=== PATIENT | female | born 1965 | race Caucasian/White ===

== ENCOUNTER 2018-04-30 14:18 | Inpatient (IN) | payer BC, MEDICARE ==
[2018-04-30] MEDS ORDERED: SODIUM CHLORIDE 0.9% 1,000 ML IV STA (14:40)
[2018-04-30] MEDS ORDERED: SODIUM CHLORIDE 0.9% 500 ML 500 ML IV STA (14:40)
[2018-04-30] MEDS ORDERED: FAMOTIDINE 20 MG/2 ML VIAL IV STA (15:06)
[2018-04-30] MEDS ORDERED: ONDANSETRON 4 MG/2 ML VIAL IVP STA ×2 (15:06→17:18)
[2018-04-30 15:38] LABS: Basophils % (A) 0 %; Eosinophils # (A) 0.2 k/uL (0-0.7); Eosinophils % (A) 1 %; HCT 43.2 % (34.0-46.0); HGB 13.9 gm/dL (11.4-16.0); Lymphocytes % (A) 13 %; MCH 29.5 pg (25.0-35.0); MCHC 32.1 g/dL (31.0-37.0); MCV 91.8 fL (80.0-100.0); Mean Platelet Volume 6.8; Monocytes # (A) 0.9 k/uL (0-1.0); Monocytes % (A) 6 %; Neutrophils # (A) 11.8 k/uL (1.3-7.7); Neutrophils % (A) 78 %; Platelet Count 372 k/uL (150-450); RBC 4.71 m/uL (3.80-5.40); RDW 12.3 % (11.5-15.5); WBC 15.2 k/uL (3.8-10.6)
[2018-04-30 15:40] LABS: Amorphous Sediment,Urine Rare /hpf; Appearance,Urine Cloudy (Clear); Bacteria,Urine Occasional /hpf; Bilirubin,Urine Negative (Negative); Blood,Urine Small (Negative); Color,Urine Yellow; Glucose,Urine (UA) Negative (Negative); Ketones,Urine 2+ (Negative); Leukocyte Esterase,Urine Moderate (Negative); Mucus,Urine Moderate /hpf; Nitrite,Urine Negative (Negative); Protein,Urine Trace (Negative); RBC,Urine 3 /hpf (0-5); Specific Gravity,Urine 1.014 (1.001-1.035); Squamous Epithelial Cell,Urine 20 /hpf (0-4); Urobilinogen,Urine <2.0 mg/dL (<2.0); WBC,Urine 3 /hpf (0-5)
[2018-04-30 15:42] LABS: ALT 104 U/L (9-52); AST 41 U/L (14-36); Albumin 3.8 g/dL (3.5-5.0); Alkaline Phosphatase 174 U/L (38-126); Amylase <30 U/L (30-110); Anion Gap 12 mmol/L; Blood Urea Nitrogen 13 mg/dL (7-17); Calcium 9.4 mg/dL (8.4-10.2); Carbon Dioxide 23 mmol/L (22-30); Chloride 105 mmol/L (98-107); Glucose 96 mg/dL (74-99); Lipase 90 U/L (23-300); Potassium 3.4 mmol/L (3.5-5.1); Sodium 140 mmol/L (137-145); Total Bilirubin 0.5 mg/dL (0.2-1.3)
--- NOTE | 2018-04-30 15:51 | ED ---
Nausea/Vomiting/Diarrhea HPI - General Chief complaint: Nausea/Vomiting/Diarrhea Stated complaint: NVD,head pressure Time Seen by Provider: 04/30/18 14:40 Source: patient, RN notes reviewed Mode of arrival: wheelchair Limitations: no limitations - History of Present Illness Initial comments: 52-year-old female presents emergency Department with multiple complaints. Patient states that approximately 10 days ago she started with generalized not feeling well, swollen glands in her neck region. She states she woke up with her face appearing purplish, facial flushing sensation. Patient states she saw her PCP who felt that this may be something viral. Symptoms seemed to worsen in which she notified PCP and told her she most likely is influenza and she does need to write it out. She's had increasing nausea and vomiting at the beginning which vomiting has resolved though she is still very nauseous. She's had diarrhea daily which is loose and watery. No traveling no sick contacts with some her symptoms. Denies any seafood intake. Patient states that she's had no melena she is a. Patient states that she just feels uncomfortable pressure or neck region and she recently developed a sore throat. Patient also complains of lower abdominal and upper abdominal pain. Denies any chest pain. - Related Data Home Medications Medication Instructions Recorded Confirmed Albuterol Sulfate [Proair Hfa] 2 puff INHALATION DAILY PRN 04/30/18 04/30/18 Atenolol [Tenormin] 50 mg PO DAILY 04/30/18 04/30/18 Butalb/APAP/Caff 50-325-40Mg 1 tab PO DAILY PRN 04/30/18 04/30/18 [Fioricet 50-325-40] Calcium Carbonate [Tums] 500 mg PO DIRECTED PRN 04/30/18 04/30/18 Furosemide [Lasix] 20 mg PO DAILY 04/30/18 04/30/18 Gabapentin 600 mg PO TID 04/30/18 04/30/18 HYDROcodone/APAP 10-325MG [[place] 1 tab PO HS 04/30/18 04/30/18 10-325] HYDROcodone/APAP 7.5-325MG [[place] 1 tab PO TID 04/30/18 04/30/18 7.5-325] Nortriptyline [Pamelor] 50 mg PO HS 04/30/18 04/30/18 Omeprazole [PriLOSEC] 10 mg PO BID 04/30/18 04/30/18 Potassium Chloride ER [K-Dur 20] 20 meq PO BID 04/30/18 04/30/18 Topiramate [Topamax] 100 mg PO DAILY 04/30/18 04/30/18 tiZANidine [Zanaflex] 4 mg PO TID 04/30/18 04/30/18 Allergies Allergy/AdvReac Type Severity Reaction Status Date / Time No Known Allergies Allergy Verified 04/30/18 16:39 Review of Systems ROS Statement: Those systems with pertinent positive or pertinent negative responses have been documented in the HPI. ROS Other: All systems not noted in ROS Statement are negative. Past Medical History Past Medical History: Asthma, GERD/Reflux, Hypertension Additional Past Medical History / Comment(s): WATER RETENTION, MIGRAINES History of Any Multi-Drug Resistant Organisms: None Reported Past Surgical History: Back Surgery, Hysterectomy Past Psychological History: No Psychological Hx Reported Smoking Status: Never smoker Past Alcohol Use History: None Reported Past Drug Use History: None Reported General Exam Limitations: no limitations General appearance: alert, in no apparent distress Head exam: Present: atraumatic, normocephalic, normal inspection Eye exam: Present: normal appearance, PERRL, EOMI. Absent: scleral icterus, conjunctival injection, periorbital swelling ENT exam: Present: normal exam, normal oropharynx, mucous membranes moist, TM's normal bilaterally Neck exam: Present: normal inspection, full ROM. Absent: tenderness, meningismus, lymphadenopathy Respiratory exam: Present: normal lung sounds bilaterally. Absent: respiratory distress, wheezes, rales, rhonchi, stridor Cardiovascular Exam: Present: regular rate, normal rhythm, normal heart sounds. Absent: systolic murmur, diastolic murmur, rubs, gallop, clicks GI/Abdominal exam: Present: soft, tenderness (Moderate upper and lower), normal bowel sounds. Absent: distended, guarding, rebound, rigid Back exam: Absent: CVA tenderness (R), CVA tenderness (L) Neurological exam: Present: alert, oriented X3, CN II-XII intact Skin exam: Present: warm, dry, intact, normal color. Absent: rash Course Vital Signs 03/22/19 03/22/19 03/22/19 14:30 16:25 17:18 Temperature 98.1 F 98.1 F Pulse Rate 74 67 76 Respiratory 16 19 15 Rate Blood Pressure 117/75 107/65 113/69 O2 Sat by Pulse 97 97 97 Oximetry Medical Decision Making - Medical Decision Making 52-year-old female presented emergency from for ongoing nausea vomiting diarrhea. Patient's found to be dehydrated, mild transaminitis. Ultrasound shows evidence of stone but no evidence of infection. Patient has persistent nausea emergency department. Patient will be admitted for IV hydration, surgery evaluation. - Lab Data Result diagrams: 04/30/18 15:12 04/30/18 15:12 Lab Results 04/30/18 04/30/18 04/30/18 Range/Units 15:12 15:12 15:12 WBC 15.2 H (3.8-10.6) k/uL RBC 4.71 (3.80-5.40) m/uL Hgb 13.9 (11.4-16.0) gm/dL Hct 43.2 (34.0-46.0) % MCV 91.8 (80.0-100.0) fL MCH 29.5 (25.0-35.0) pg MCHC 32.1 (31.0-37.0) g/dL RDW 12.3 (11.5-15.5) % Plt Count 372 (150-450) k/uL Neutrophils % 78 % Lymphocytes % 13 % Monocytes % 6 % Eosinophils % 1 % Basophils % 0 % Neutrophils # 11.8 H (1.3-7.7) k/uL Lymphocytes # 2.0 (1.0-4.8) k/uL Monocytes # 0.9 (0-1.0) k/uL Eosinophils # 0.2 (0-0.7) k/uL Basophils # 0.0 (0-0.2) k/uL Sodium 140 (137-145) mmol/L Potassium 3.4 L (3.5-5.1) mmol/L Chloride 105 (98-107) mmol/L Carbon Dioxide 23 (22-30) mmol/L Anion Gap 12 mmol/L BUN 13 (7-17) mg/dL Creatinine 0.78 (0.52-1.04) mg/dL Est GFR (CKD-EPI)AfAm >90 (>60 ml/min/1.73 sqM) Est GFR (CKD-EPI)NonAf 88 (>60 ml/min/1.73 sqM) Glucose 96 (74-99) mg/dL Calcium 9.4 (8.4-10.2) mg/dL Magnesium 2.0 (1.6-2.3) mg/dL Total Bilirubin 0.5 (0.2-1.3) mg/dL AST 41 H (14-36) U/L ALT 104 H (9-52) U/L Alkaline Phosphatase 174 H (38-126) U/L Troponin I (0.000-0.034) ng/mL Total Protein 7.0 (6.3-8.2) g/dL Albumin 3.8 (3.5-5.0) g/dL Amylase <30 L (30-110) U/L Lipase 90 (23-300) U/L Urine Color Yellow Urine Appearance Cloudy H (Clear) Urine pH 6.0 (5.0-8.0) Ur Specific [place] 1.014 (1.001-1.035) Urine Protein Trace H (Negative) Urine Glucose (UA) Negative (Negative) Urine Ketones 2+ H (Negative) Urine Blood Small H (Negative) Urine Nitrite Negative (Negative) Urine Bilirubin Negative (Negative) Urine Urobilinogen <2.0 (<2.0) mg/dL Ur Leukocyte Esterase Moderate H (Negative) Urine RBC 3 (0-5) /hpf Urine WBC 3 (0-5) /hpf Ur Squamous Epith Cells 20 H (0-4) /hpf Amorphous Sediment Rare H (None) /hpf Urine Bacteria Occasional H (None) /hpf Urine Mucus Moderate H (None) /hpf Hepatitis A IgM Ab Heterophile Antibody (Negative) 04/30/18 04/30/18 04/30/18 Range/Units 15:12 15:12 16:09 WBC (3.8-10.6) k/uL RBC (3.80-5.40) m/uL Hgb (11.4-16.0) gm/dL Hct (34.0-46.0) % MCV (80.0-100.0) fL MCH (25.0-35.0) pg MCHC (31.0-37.0) g/dL RDW (11.5-15.5) % Plt Count (150-450) k/uL Neutrophils % % Lymphocytes % % Monocytes % % Eosinophils % % Basophils % % Neutrophils # (1.3-7.7) k/uL Lymphocytes # (1.0-4.8) k/uL Monocytes # (0-1.0) k/uL Eosinophils # (0-0.7) k/uL Basophils # (0-0.2) k/uL Sodium (137-145) mmol/L Potassium (3.5-5.1) mmol/L Chloride (98-107) mmol/L Carbon Dioxide (22-30) mmol/L Anion Gap mmol/L BUN (7-17) mg/dL Creatinine (0.52-1.04) mg/dL Est GFR (CKD-EPI)AfAm (>60 ml/min/1.73 sqM) Est GFR (CKD-EPI)NonAf (>60 ml/min/1.73 sqM) Glucose (74-99) mg/dL Calcium (8.4-10.2) mg/dL Magnesium (1.6-2.3) mg/dL Total Bilirubin (0.2-1.3) mg/dL AST (14-36) U/L ALT (9-52) U/L Alkaline Phosphatase (38-126) U/L Troponin I <0.012 (0.000-0.034) ng/mL Total Protein (6.3-8.2) g/dL Albumin (3.5-5.0) g/dL Amylase (30-110) U/L Lipase (23-300) U/L Urine Color Urine Appearance (Clear) Urine pH (5.0-8.0) Ur Specific [place] (1.001-1.035) Urine Protein (Negative) Urine Glucose (UA) (Negative) Urine Ketones (Negative) Urine Blood (Negative) Urine Nitrite (Negative) Urine Bilirubin (Negative) Urine Urobilinogen (<2.0) mg/dL Ur Leukocyte Esterase (Negative) Urine RBC (0-5) /hpf Urine WBC (0-5) /hpf Ur Squamous Epith Cells (0-4) /hpf Amorphous Sediment (None) /hpf Urine Bacteria (None) /hpf Urine Mucus (None) /hpf Hepatitis A IgM Ab NEGATIVE Heterophile Antibody Negative (Negative) - EKG Data EKG Comments: EKG performed at 15:21 normal sinus rhythm with rate of 70 ID 1:30 QRS 100 QT/QTC 398/429 Disposition Clinical Impression: Dehydration, Diarrhea, Transaminitis, Cholelithiasis, Intractable nausea and vomiting Disposition: ADMITTED IP TO THIS HOSP Condition: Fair Referrals: Bennie Bennett MD [Primary Care Provider] - 1-2 days
--- NOTE | 2018-04-30 16:01 | US ---
EXAMINATION TYPE: US abdomen limited DATE OF EXAM: 04/30/2018 COMPARISON: NONE CLINICAL HISTORY: Pain. No surgeries, NPO EXAM MEASUREMENTS: Liver Length: 16.2 cm Gallbladder Wall: 0.2 cm CBD: 0.4 cm CHD: 0.3 cm Right Kidney: 10.8 x 5.3 x 4.7 cm Pancreas: Appears echogenic in appearance. Tail obscured by overlying bowel gas Liver: wnl Gallbladder: Multiple mobile echogenic foci seen with shadow, largest - 1.9 cm Evidence for sonographic Cuevas's sign: neg CBD: wnl CHD: wnl Right Kidney: wnl IMPRESSION: 1. Multiple gallstones without wall thickening or pericholecystic fluid.
[2018-04-30] MEDS ORDERED: diphenhydrAMINE 50 MG/ML 1 ML VIAL IVP STA (16:06)
[2018-04-30] MEDS ORDERED: METOCLOPRAMIDE 5 MG/ML 2 ML VIAL IVP STA (16:06)
[2018-04-30 17:17] LABS: Hepatitis A AB IgM Index 0.06; Hepatitis A Antibody IgM NEGATIVE
[2018-04-30] MEDS ORDERED: ONDANSETRON 4 MG/2 ML VIAL IVP PRN (18:04)
[2018-04-30] MEDS: SODIUM CHLORIDE 0.9% 1,000 ML IV SCH (18:48)
[2018-04-30 19:39] LABS: INR 0.9 (<1.2); Prothrombin Time 9.9 sec (9.0-12.0)
--- NOTE | 2018-04-30 20:10 | P.HPIM ---
History of Present Illness H&P Date: 04/30/18 Chief Complaint: Abdominal pain nausea vomiting and diarrhea The patient is a 52-year-old female with a past medical history of essential hypertension, migraine headaches, chronic pain from previous, neck surgeries including cervical laminectomy and fusion and lumbar discectomy and laminectomy who presents to the ER via private vehicle with chief complaint of abdominal pain. The patient reports a history of 10 days of mid epigastric to left upper quadrant abdominal pain moderate to severe described as crampy with radiation into her back at times, she reports associated nausea and vomiting during this time along with profound watery diarrhea and subjective fevers and chills and night sweats, she denies any bright red blood per rectum or dark melanotic stools. She reports a history of receiving antibiotics with Augmentin for a total of 2-3 courses previously to treat presumed sinusitis. The patient does report a history of recurrent left cervical lymphadenopathy The patient denies any chest pain, she denies shortness of breath, she denies lower extr emity swelling. In the ER the patient had a comprehensive workup abnormal labs included a white count of 15.2,serum potassium level of 3.4, AST ALT at 41/104 respectively, lipase was 90. Her right upper quadrant ultrasound was consistent with multiple gallstones without thickening or pericholecystic fluid. EKG showed normal sinus rhythm Review of Systems Pertinent positives per HPI all other review of systems otherwise negative Past Medical History Past Medical History: Asthma, GERD/Reflux, Hypertension Additional Past Medical History / Comment(s): WATER RETENTION, MIGRAINES History of Any Multi-Drug Resistant Organisms: None Reported Past Surgical History: Back Surgery, Hysterectomy Past Psychological History: No Psychological Hx Reported Smoking Status: Never smoker Past Alcohol Use History: None Reported Past Drug Use History: None Reported - Past Family History Mother Family Medical History: Congestive Heart Failure (CHF), Diabetes Mellitus, Hypertension Additional Family Medical History / Comment(s): pulmonary hypertension, needed oxygen Father Family Medical History: Congestive Heart Failure (CHF), COPD, Diabetes Mellitus, Hypertension Additional Family Medical History / Comment(s): obsese, edema, Medications and Allergies Home Medications Medication Instructions Recorded Confirmed Type Albuterol Sulfate [Proair Hfa] 2 puff INHALATION DAILY PRN 04/30/18 04/30/18 History Atenolol [Tenormin] 50 mg PO DAILY 04/30/18 04/30/18 History Butalb/APAP/Caff 50-325-40Mg 1 tab PO DAILY PRN 04/30/18 04/30/18 History [Fioricet 50-325-40] Calcium Carbonate [Tums] 500 mg PO DIRECTED PRN 04/30/18 04/30/18 History Furosemide [Lasix] 20 mg PO DAILY 04/30/18 04/30/18 History Gabapentin 600 mg PO TID 04/30/18 04/30/18 History HYDROcodone/APAP 10-325MG [[place] 1 tab PO HS 04/30/18 04/30/18 History 10-325] HYDROcodone/APAP 7.5-325MG [[place] 1 tab PO TID 04/30/18 04/30/18 History 7.5-325] Nortriptyline [Pamelor] 50 mg PO HS 04/30/18 04/30/18 History Omeprazole [PriLOSEC] 10 mg PO BID 04/30/18 04/30/18 History Potassium Chloride ER [K-Dur 20] 20 meq PO BID 04/30/18 04/30/18 History Topiramate [Topamax] 100 mg PO DAILY 04/30/18 04/30/18 History tiZANidine [Zanaflex] 4 mg PO TID 04/30/18 04/30/18 History Allergies Allergy/AdvReac Type Severity Reaction Status Date / Time No Known Allergies Allergy Verified 04/30/18 16:39 Physical Exam Vitals: Vital Signs Temp Pulse Resp BP Pulse Ox 04/30/18 18:58 99.1 F 79 15 117/71 95 04/30/18 17:18 76 15 113/69 97 04/30/18 16:25 98.1 F 67 19 107/65 97 04/30/18 14:30 98.1 F 74 16 117/75 97 Intake and Output 04/30/18 04/30/18 04/30/18 06:59 14:59 22:59 Other: Weight 88.451 kg Constitutional: No acute distress, conversant, pleasant Eyes: Anicteric sclerae, moist conjunctiva, no lid-lag, PERRLA ENMT: NC/AT,Oropharynx clear, no erythema, exudates Neck:Supple, FROM, no masses, or JVD, No carotid bruits; No thyromegaly Lungs: Clear to auscultation, Clear to percussion, Normal respiratory effort, no accessory muscle use Cardiovascular: Heart regular in rate and rhythm, No murmurs, gallops, or rubs no peripheral edema Abdominal: Soft tender to palpation in the left upper quadrant with positive McMurphy sign, non distended, no guarding, no rebound or rigidity, hypoactive bowel sounds No hepatomegaly, No splenomegaly, No palpable mass No abdominal wall hernia noted Skin: Normal temperature, tone, texture, turgor, No induration No subcutaneous nodules, No rash, lesions, No ulcers Extremities:No digital cyanosis No clubbing, Pedal pulses intact and symmetrical Radial pulses intact and symmetrical Normal gait and station, No calf tenderness Psychiatric: Alert and oriented to person, place and time, Appropriate affect Intact judgement Neuro: Muscles Strength 5/5 in all 4 extremities, Sensation to light touch grossly present throughout, Cranial nerves II-XII grossly intact. No focal sensory deficits Results CBC & Chem 7: 04/30/18 15:12 04/30/18 15:12 Labs: Abnormal Lab Results - Last 24 Hours (Table) 04/30/18 04/30/18 04/30/18 Range/Units 15:12 15:12 15:12 WBC 15.2 H (3.8-10.6) k/uL Neutrophils # 11.8 H (1.3-7.7) k/uL Potassium 3.4 L (3.5-5.1) mmol/L AST 41 H (14-36) U/L ALT 104 H (9-52) U/L Alkaline Phosphatase 174 H (38-126) U/L Amylase <30 L (30-110) U/L Urine Appearance Cloudy H (Clear) Urine Protein Trace H (Negative) Urine Ketones 2+ H (Negative) Urine Blood Small H (Negative) Ur Leukocyte Esterase Moderate H (Negative) Ur Squamous Epith Cells 20 H (0-4) /hpf Amorphous Sediment Rare H (None) /hpf Urine Bacteria Occasional H (None) /hpf Urine Mucus Moderate H (None) /hpf Assessment and Plan (1) Symptomatic cholelithiasis Current Visit: Yes Status: Acute Code(s): K80.20 - CALCULUS OF GALLBLADDER W/O CHOLECYSTITIS W/O OBSTRUCTION SNOMED Code(s): 442296496 (2) Abdominal pain Current Visit: Yes Status: Acute Code(s): R10.9 - UNSPECIFIED ABDOMINAL PAIN SNOMED Code(s): 92346676 (3) Diarrhea Current Visit: Yes Status: Acute Code(s): R19.7 - DIARRHEA, UNSPECIFIED SNOMED Code(s): 93365338 (4) Intractable nausea and vomiting Current Visit: Yes Status: Acute Code(s): R11.2 - NAUSEA WITH VOMITING, UNSPECIFIED SNOMED Code(s): 940616015 (5) Leukocytosis Current Visit: Yes Status: Acute Code(s): D72.829 - ELEVATED WHITE BLOOD CELL COUNT, UNSPECIFIED SNOMED Code(s): 228496045 (6) Transaminitis Current Visit: Yes Status: Acute Code(s): R74.0 - NONSPEC ELEV OF LEVELS OF TRANSAMNS & LACTIC ACID DEHYDRGNSE SNOMED Code(s): 279568435 Plan: The patient is placed in observation anticipate a less than 2 midnight stay with symptomatic cholelithiasis after presenting with abdominal pain and intractable nausea vomiting and diarrhea with a white count of 15.2. We'll plan to treat the patient supportively with IV antiemetics and morphine, will plan to obtain a CT abdomen and pelvis, consult general surgery Dr. carver to evaluate for lap terrie. We'll obtain C. diff stool studies and started on empiric IV antibiotics with Flagyl and Zosyn. We'll obtain blood cultures. Place patient on DVT) GI prophylaxis with heparin and Protonix respectively. Continue to follow her clinical course CODE STATUS full code Discussed plan of care with : Patient and her Anticipated discharge : 1-2 days
[2018-04-30 21:00] VITALS: BMI 33.5
[2018-04-30] MEDS ORDERED: PANTOPRAZOLE 40 MG TABLET PO SCH (21:00)
[2018-04-30] MEDS: NORTRIPTYLINE 25 MG CAP PO SCH (21:02)
[2018-04-30] MEDS: POTASSIUM CHLORIDE ER 20 MEQ TAB.ER PO SCH (21:07)
[2018-04-30] MEDS: GABAPENTIN 300 MG CAP PO SCH (21:07)
[2018-04-30] MEDS: HYDROcodone/APAP 7.5-325MG 1 EACH TAB PO SCH (21:07)
[2018-04-30] MEDS: metroNIDAZOLE-NS PMX 500 MG in SALINE 1 100ML.BAG IVPB SCH (21:47)
[2018-04-30] MEDS: tiZANidine 4 MG TAB PO SCH (21:53)
--- NOTE | 2018-04-30 22:13 | CT ---
EXAMINATION TYPE: CT abdomen pelvis wo con DATE OF EXAM: 04/30/2018 COMPARISON: None HISTORY: abdominal pain, nausea, vomiting CT DLP: 561.2 mGycm Automated exposure control for dose reduction was used. TECHNIQUE: Helical acquisition of images was performed from the lung bases through the pelvis. FINDINGS: Within the limits of noncontrast CT the following observations are made: LUNG BASES: No significant abnormality is appreciated. LIVER/GB: No definite acute findings, but cholelithiasis occupies most of the gallbladder. Gallbladde r is otherwise normal as is the biliary tree. PANCREAS: No significant abnormality is seen. SPLEEN: No significant abnormality is seen. ADRENALS: No significant abnormality is seen. KIDNEYS: No significant abnormality is seen. PERITONEAL CAVITY: There is a small volume of free fluid within the lower pelvis and cul-de-sac, like ly reactive etiology. There is no pneumoperitoneum. RETROPERITONEAL ADENOPATHY: None visualized REPRODUCTIVE ORGANS: No significant abnormality is seen URINARY BLADDER: No significant abnormality is seen. PELVIC ADENOPATHY: None visualized. The stomach and duodenum and small bowel are unremarkable. OSSEOUS STRUCTURES: No significant abnormality is seen. BOWEL: A striking finding on the CT is brush colitis. There is moderate marked circumferential mural t hickening of the colon throughout the ascending colon and also involving the transverse colon and jovany cending colon, with relative sparing of the rectosigmoid there is no associated pneumatosis or pneumo peritoneum. Supporting mesocolon shows [id number] edematous reticulation diffusely throughout i ts ascending and transverse and descending components. IMPRESSION: MODERATE-SEVERE PANCOLITIS CONSISTENT WITH INFLAMMATORY/INFECTIOUS ETIOLOGY; CONSIDER PSEUDOMEMBRANOU S COLITIS.
[2018-04-30] MEDS ORDERED: LEVOFLOXACIN 750MG-D5W PMX 750 MG in DEXTROSE/WATER 1 150ML.BAG IVPB SCH (23:00)
[2018-05-01] MEDS: PIPERACILLIN-TAZOBACTAM 3.375 GM in SODIUM CHLORIDE 0.9% 100 ML IVPB SCH ×3 (02:43→21:19)
[2018-05-01] MEDS: SODIUM CHLORIDE 0.9% 1,000 ML IV SCH ×2 (05:37→13:47)
[2018-05-01] MEDS: metroNIDAZOLE-NS PMX 500 MG in SALINE 1 100ML.BAG IVPB SCH ×3 (07:01→21:52)
[2018-05-01 07:47] LABS: Basophils % (A) 0 %; Eosinophils # (A) 0.2 k/uL (0-0.7); Eosinophils % (A) 2 %; HCT 42.1 % (34.0-46.0); HGB 13.4 gm/dL (11.4-16.0); Lymphocytes # (A) 1.7 k/uL (1.0-4.8); Lymphocytes % (A) 16 %; MCH 29.3 pg (25.0-35.0); MCHC 31.8 g/dL (31.0-37.0); MCV 92.1 fL (80.0-100.0); Mean Platelet Volume 6.9; Monocytes # (A) 0.6 k/uL (0-1.0); Monocytes % (A) 5 %; Neutrophils # (A) 7.8 k/uL (1.3-7.7); Neutrophils % (A) 75 %; Platelet Count 366 k/uL (150-450); RBC 4.58 m/uL (3.80-5.40); RDW 12.1 % (11.5-15.5); WBC 10.4 k/uL (3.8-10.6)
[2018-05-01 08:04] LABS: Anion Gap 10 mmol/L; Blood Urea Nitrogen 12 mg/dL (7-17); Calcium 8.8 mg/dL (8.4-10.2); Carbon Dioxide 23 mmol/L (22-30); Chloride 108 mmol/L (98-107); Glucose 84 mg/dL (74-99); Potassium 3.4 mmol/L (3.5-5.1); Sodium 141 mmol/L (137-145)
[2018-05-01] MEDS: HYDROcodone/APAP 7.5-325MG 1 EACH TAB PO SCH ×3 (08:10→21:49)
[2018-05-01] MEDS: POTASSIUM CHLORIDE ER 20 MEQ TAB.ER PO SCH ×2 (08:10→20:01)
[2018-05-01] MEDS: GABAPENTIN 300 MG CAP PO SCH ×3 (08:10→21:49)
[2018-05-01] MEDS: PANTOPRAZOLE 40 MG/10 ML VIAL IVP SCH (08:11)
[2018-05-01] MEDS: FUROSEMIDE 20 MG TAB PO SCH (08:11)
[2018-05-01] MEDS: TOPIRAMATE 100 MG TAB PO SCH (08:11)
[2018-05-01] MEDS: ATENOLOL 50 MG TAB PO SCH (08:11)
[2018-05-01] MEDS: tiZANidine 4 MG TAB PO SCH ×3 (08:12→21:50)
[2018-05-01] MEDS ORDERED: BUTALB/APAP/CAFF 50-325-40MG TAB PO PRN (08:29)
[2018-05-01] MEDS ORDERED: PANTOPRAZOLE 40 MG/10 ML VIAL IV SCH (09:00)
--- NOTE | 2018-05-01 15:22 | P.GSCN ---
History of Present Illness Consult date: 05/01/18 History of present illness: This is a very pleasant 52-year-old female who presented with a history of abdominal pain and multiple watery bowel movements 5-10 day. This is been going on for several days. She has been on antibiotics as an outpatient 3 courses of antibiotics secondary to a sinus infection. She denies any recent hospitalizations. She states that the pain was mostly in her right upper and left upper quadrants. She's never had anything like this before in the past. She does state that occasionally she gets some pain or nausea after eating in her right upper quadrant but this pain is a little different. She denies any fevers she has no other complaints at this time. Past Medical History Past Medical History: Asthma, GERD/Reflux, Hypertension Additional Past Medical History / Comment(s): WATER RETENTION, MIGRAINES History of Any Multi-Drug Resistant Organisms: None Reported Past Surgical History: Back Surgery, Hysterectomy Additional Past Surgical History / Comment(s): cervcial fusion C2-C7 darwin wrist, 3 back surgrey, CSF leak Past Anesthesia/Blood Transfusion Reactions: No Reported Reaction Past Psychological History: No Psychological Hx Reported Smoking Status: Never smoker Past Alcohol Use History: None Reported Past Drug Use History: None Reported - Past Family History Mother Family Medical History: Congestive Heart Failure (CHF), Diabetes Mellitus, Hypertension Additional Family Medical History / Comment(s): pulmonary hypertension, needed oxygen Father Family Medical History: Congestive Heart Failure (CHF), COPD, Diabetes Mellitus, Hypertension Additional Family Medical History / Comment(s): obsese, edema, Medications and Allergies Home Medications Medication Instructions Recorded Confirmed Type Albuterol Sulfate [Proair Hfa] 2 puff INHALATION DAILY PRN 04/30/18 04/30/18 History Atenolol [Tenormin] 50 mg PO DAILY 04/30/18 04/30/18 History Butalb/APAP/Caff 50-325-40Mg 1 tab PO DAILY PRN 04/30/18 04/30/18 History [Fioricet 50-325-40] Calcium Carbonate [Tums] 500 mg PO DIRECTED PRN 04/30/18 04/30/18 History Furosemide [Lasix] 20 mg PO DAILY 04/30/18 04/30/18 History Gabapentin 600 mg PO TID 04/30/18 04/30/18 History HYDROcodone/APAP 10-325MG [[place] 1 tab PO HS 04/30/18 04/30/18 History 10-325] HYDROcodone/APAP 7.5-325MG [[place] 1 tab PO TID 04/30/18 04/30/18 History 7.5-325] Nortriptyline [Pamelor] 50 mg PO HS 04/30/18 04/30/18 History Omeprazole [PriLOSEC] 10 mg PO BID 04/30/18 04/30/18 History Potassium Chloride ER [K-Dur 20] 20 meq PO BID 04/30/18 04/30/18 History Topiramate [Topamax] 100 mg PO DAILY 04/30/18 04/30/18 History tiZANidine [Zanaflex] 4 mg PO TID 04/30/18 04/30/18 History Allergies Allergy/AdvReac Type Severity Reaction Status Date / Time No Known Allergies Allergy Verified 04/30/18 16:39 Surgical - Exam Osteopathic Statement: *. No significant issues noted on an osteopathic structural exam other than those noted in the History and Physical/Consult. Vital Signs Temp Pulse Resp BP Pulse Ox 98.1 F 74 16 117/75 97 04/30/18 14:30 04/30/18 14:30 04/30/18 14:30 04/30/18 14:30 04/30/18 14:30 - General well developed, well nourished, no distress - Eyes PERRL - Neck trachea midline - Respiratory normal expansion, normal respiratory effort - Cardiovascular Rhythm: regular - Abdomen Mild tenderness to palpation left upper right upper quadrants no rebound rigidity or guarding Abdomen: soft - Neurologic normal coordination, normal sensation - Psychiatric oriented to time, oriented to person, oriented to place Results - Labs 05/01/18 07:20 05/01/18 07:20 Abnormal Lab Results - Last 24 Hours (Table) 04/30/18 04/30/18 04/30/18 Range/Units 15:12 15:12 15:12 WBC 15.2 H (3.8-10.6) k/uL Neutrophils # 11.8 H (1.3-7.7) k/uL Potassium 3.4 L (3.5-5.1) mmol/L Chloride (98-107) mmol/L AST 41 H (14-36) U/L ALT 104 H (9-52) U/L Alkaline Phosphatase 174 H (38-126) U/L Amylase <30 L (30-110) U/L Urine Appearance Cloudy H (Clear) Urine Protein Trace H (Negative) Urine Ketones 2+ H (Negative) Urine Blood Small H (Negative) Ur Leukocyte Esterase Moderate H (Negative) Ur Squamous Epith Cells 20 H (0-4) /hpf Amorphous Sediment Rare H (None) /hpf Urine Bacteria Occasional H (None) /hpf Urine Mucus Moderate H (None) /hpf Stool Lactoferrin (NEGATIVE) C. difficile (EIA) Intrp (Negative) 05/01/18 05/01/18 05/01/18 Range/Units 03:20 03:20 07:20 WBC (3.8-10.6) k/uL Neutrophils # 7.8 H (1.3-7.7) k/uL Potassium (3.5-5.1) mmol/L Chloride (98-107) mmol/L AST (14-36) U/L ALT (9-52) U/L Alkaline Phosphatase (38-126) U/L Amylase (30-110) U/L Urine Appearance (Clear) Urine Protein (Negative) Urine Ketones (Negative) Urine Blood (Negative) Ur Leukocyte Esterase (Negative) Ur Squamous Epith Cells (0-4) /hpf Amorphous Sediment (None) /hpf Urine Bacteria (None) /hpf Urine Mucus (None) /hpf Stool Lactoferrin POSITIVE H (NEGATIVE) C. difficile (EIA) Intrp Positive A (Negative) 05/01/18 Range/Units 07:20 WBC (3.8-10.6) k/uL Neutrophils # (1.3-7.7) k/uL Potassium 3.4 L (3.5-5.1) mmol/L Chloride 108 H (98-107) mmol/L AST (14-36) U/L ALT (9-52) U/L Alkaline Phosphatase (38-126) U/L Amylase (30-110) U/L Urine Appearance (Clear) Urine Protein (Negative) Urine Ketones (Negative) Urine Blood (Negative) Ur Leukocyte Esterase (Negative) Ur Squamous Epith Cells (0-4) /hpf Amorphous Sediment (None) /hpf Urine Bacteria (None) /hpf Urine Mucus (None) /hpf Stool Lactoferrin (NEGATIVE) C. difficile (EIA) Intrp (Negative) Microbiology - Last 24 Hours (Table) 05/01/18 03:20 Stool Culture - Preliminary Stool Diabetes panel 04/30/18 05/01/18 Range/Units 15:12 07:20 Sodium 140 141 (137-145) mmol/L Potassium 3.4 L 3.4 L (3.5-5.1) mmol/L Chloride 105 108 H (98-107) mmol/L Carbon Dioxide 23 23 (22-30) mmol/L BUN 13 12 (7-17) mg/dL Creatinine 0.78 0.66 (0.52-1.04) mg/dL Glucose 96 84 (74-99) mg/dL Calcium 9.4 8.8 (8.4-10.2) mg/dL AST 41 H (14-36) U/L ALT 104 H (9-52) U/L Alkaline Phosphatase 174 H (38-126) U/L Total Protein 7.0 (6.3-8.2) g/dL Albumin 3.8 (3.5-5.0) g/dL Calcium panel 04/30/18 05/01/18 Range/Units 15:12 07:20 Calcium 9.4 8.8 (8.4-10.2) mg/dL Albumin 3.8 (3.5-5.0) g/dL Pituitary panel 04/30/18 05/01/18 Range/Units 15:12 07:20 Sodium 140 141 (137-145) mmol/L Potassium 3.4 L 3.4 L (3.5-5.1) mmol/L Chloride 105 108 H (98-107) mmol/L Carbon Dioxide 23 23 (22-30) mmol/L BUN 13 12 (7-17) mg/dL Creatinine 0.78 0.66 (0.52-1.04) mg/dL Glucose 96 84 (74-99) mg/dL Calcium 9.4 8.8 (8.4-10.2) mg/dL Adrenal panel 04/30/18 05/01/18 Range/Units 15:12 07:20 Sodium 140 141 (137-145) mmol/L Potassium 3.4 L 3.4 L (3.5-5.1) mmol/L Chloride 105 108 H (98-107) mmol/L Carbon Dioxide 23 23 (22-30) mmol/L BUN 13 12 (7-17) mg/dL Creatinine 0.78 0.66 (0.52-1.04) mg/dL Glucose 96 84 (74-99) mg/dL Calcium 9.4 8.8 (8.4-10.2) mg/dL Total Bilirubin 0.5 (0.2-1.3) mg/dL AST 41 H (14-36) U/L ALT 104 H (9-52) U/L Alkaline Phosphatase 174 H (38-126) U/L Total Protein 7.0 (6.3-8.2) g/dL Albumin 3.8 (3.5-5.0) g/dL - Imaging CT scan - abdomen: report reviewed, image reviewed CT scan - pelvis: report reviewed, image reviewed Assessment and Plan Assessment: 1. C. diff colitis 2. Symptomatic cholelithiasis Plan: Patient does have C. diff colitis likely secondary to her outpatient antibiotics that she was on. I recommend continuing Flagyl for treatment of C. diff. Oral vancomycin could also be added. No plans for acute surgical intervention. I also discussed following up as an outpatient once his C. diff colitis is resolved for elective cholecystectomy secondary to symptomatic cholelithiasis patient stated she understood this and agreed
--- NOTE | 2018-05-01 16:09 | P.PN ---
Subjective Progress Note Date: 05/01/18 The patient was seen and examined at the bedside. She notes continued diarrhea with 3 episodes since midnight along with continued 4 out of 10 diffuse abdominal pain. She otherwise denied fever, chills, vomiting, chest pain, or shortness of breath. Objective - Vital Signs Vital signs: Vital Signs Temp 98.1 F 05/01/18 15:00 Pulse 70 05/01/18 15:00 Resp 16 05/01/18 15:00 BP 113/62 05/01/18 15:00 Pulse Ox 99 05/01/18 15:00 Intake & Output 04/30/18 05/01/18 05/01/18 18:59 06:59 18:59 Intake Total 2750 Balance 2750 Weight 88.451 kg Intake: Amount of Fluid Infused ( 1700 ml) Intake, IV Titration 1050 Amount Levofloxacin 750Mg-D5w 150 Pmx 750 mg In Dextrose/ Water 1 150ml.bag @ 100 mls/hr IVPB Q24H [facility] Rx#: [id number] Piperacillin-Tazobactam 3 100 .375 gm In Sodium Chloride 0.9% 100 ml @ 25 mls/hr IVPB Q8HR [facility] Rx# :[id number] Sodium Chloride 0.9% 1, 800 000 ml @ 100 mls/hr IV . Q10H [facility] Rx#:[id number] Other: # Voids 3 - Exam General: Non-toxic, in no acute distress, appears stated age, obese HEENT: NC/AT, anicteric sclerae, moist conjunctiva, no lid-lag, PERRLA Cardiovascular: S1/S2 wnl, no murmurs, rubs, or gallops Lungs: Clear to auscultation, normal respiratory effort, no accessory muscle use Abdominal: Soft, mild diffuse tenderness to palpation, non-distended, no guard ing, rebound, or rigidity Skin: Warm, dry Extremities: No edema or contractures Psychiatric: Alert and oriented to person, place and time, appropriate affect Neuro: CN II-XII grossly intact, Strength 5/5 in all 4 extremities, Speech intact, Sensation to light touch grossly intact throughout - Labs CBC & Chem 7: 05/01/18 07:20 05/01/18 07:20 Labs: Abnormal Lab Results - Last 24 Hours (Table) 05/01/18 05/01/18 05/01/18 Range/Units 03:20 03:20 07:20 Neutrophils # 7.8 H (1.3-7.7) k/uL Potassium (3.5-5.1) mmol/L Chloride (98-107) mmol/L Stool Lactoferrin POSITIVE H (NEGATIVE) C. difficile (EIA) Intrp Positive A (Negative) 05/01/18 Range/Units 07:20 Neutrophils # (1.3-7.7) k/uL Potassium 3.4 L (3.5-5.1) mmol/L Chloride 108 H (98-107) mmol/L Stool Lactoferrin (NEGATIVE) C. difficile (EIA) Intrp (Negative) Microbiology - Last 24 Hours (Table) 05/01/18 03:20 Stool Culture - Preliminary Stool Assessment and Plan Plan: C. diff colitis -Will continue with metronidazole and switch to oral vancomycin -Continue with normal saline 100 mL an hour -Continue with Zofran -Surgery recommendations appreciated -Patient will follow-up as an outpatient for elective cholecystectomy -Continue with contact precautions -GI recommendations pending Leukocytosis -Resolved Hypokalemia -C/w KCL oral replacement bid DVT//GI prophylaxis -Heparin -No indication for GI prophylaxis Discussed with: Patient Anticipated discharge date: 05/04/[address]: Home A total of 35 minutes was spent on the care of this complex patient more than 50% of the time was spent in counseling and care coordination.
[2018-05-01] MEDS: VANCOMYCIN ORAL SOLUTION 250 MG/5 ML BOTTLE PO SCH ×2 (17:33→23:37)
--- NOTE | 2018-05-01 18:27 | P.CONS ---
History of Present Illness - Reason for Consult Consult date: 05/01/18 [place] colitis Requesting physician: Kirt Ibanez - Chief Complaint Diarrhea - History of Present Illness Pleasant 52-year-old female with a medical history significant for hypertension, migraines and chronic pain who presents to the hospital due to diarrhea. The patient reports having over 10 loose nonbloody bowel movements daily. In addition she reported abdominal pain diffusely across her abdomen and in the lower quadrants described as sharp and crampy in nature with radiation to her back. The patient had recently underwent antibiotic therapy completed appro ximately 10 days ago and coinciding with the start of her symptoms for treatment of sinusitis. On presentation to the hospital the patient was found to have stool testing positive for lactoferrin and Clostridium difficile colitis. CT of the abdomen was significant for moderate to severe pancolitis. Surgical service has been consult today and has seen the patient. Currently she is on antibiotic therapy with both oral vancomycin and Flagyl IV. The patient reports improving in her symptoms with a decrease in the frequency of her bowel movements. There are still described as loose in nature. She reports her last colonoscopy was approximately 5 years ago in 2013 and was performed for screening, she believes this was essentially normal. Review of Systems REVIEW OF SYSTEMS: CONSTITUTIONAL: Denies any fevers, chills, weight change or fatigue. CARDIOVASCULAR: Denies any chest pain, palpitations high or low blood pressures RESPIRATORY: Denies any shortness of breath, hemoptysis or cough. GENITOURINARY: No dysuria or hematuria. MUSCULOSKELETAL: No weakness reported. SKIN: Denies any new rashes or lesions, jaundice or pallor. PSYCHIATRIC: Denies any depression or anxiety. NEUROLOGY: Denies headache, denies any new focal deficits. EARS/NOSE/THROAT: No recent hearing change, congestion, nasal discharge or sore throat. EYES: No pain in eyes, discharge or change in vision. GASTROINTESTINAL: As per HPI. Past Medical History Past Medical History: Asthma, GERD/Reflux, Hypertension Additional Past Medical History / Comment(s): WATER RETENTION, MIGRAINES History of Any Multi-Drug Resistant Organisms: None Reported Past Surgical History: Back Surgery, Hysterectomy Additional Past Surgical History / Comment(s): cervcial fusion C2-C7 darwin wrist, 3 back surgrey, CSF leak Past Anesthesia/Blood Transfusion Reactions: No Reported Reaction Past Psychological History: No Psychological Hx Reported Smoking Status: Never smoker Past Alcohol Use History: None Reported Past Drug Use History: None Reported - Past Family History Mother Family Medical History: Congestive Heart Failure (CHF), Diabetes Mellitus, Hypertension Additional Family Medical History / Comment(s): pulmonary hypertension, needed oxygen Father Family Medical History: Congestive Heart Failure (CHF), COPD, Diabetes Mellitus, Hypertension Additional Family Medical History / Comment(s): obsese, edema, Medications and Allergies Home Medications Medication Instructions Recorded Confirmed Type Albuterol Sulfate [Proair Hfa] 2 puff INHALATION DAILY PRN 04/30/18 04/30/18 History Atenolol [Tenormin] 50 mg PO DAILY 04/30/18 04/30/18 History Butalb/APAP/Caff 50-325-40Mg 1 tab PO DAILY PRN 04/30/18 04/30/18 History [Fioricet 50-325-40] Calcium Carbonate [Tums] 500 mg PO DIRECTED PRN 04/30/18 04/30/18 History Furosemide [Lasix] 20 mg PO DAILY 04/30/18 04/30/18 History Gabapentin 600 mg PO TID 04/30/18 04/30/18 History HYDROcodone/APAP 10-325MG [[place] 1 tab PO HS 04/30/18 04/30/18 History 10-325] HYDROcodone/APAP 7.5-325MG [[place] 1 tab PO TID 04/30/18 04/30/18 History 7.5-325] Nortriptyline [Pamelor] 50 mg PO HS 04/30/18 04/30/18 History Omeprazole [PriLOSEC] 10 mg PO BID 04/30/18 04/30/18 History Potassium Chloride ER [K-Dur 20] 20 meq PO BID 04/30/18 04/30/18 History Topiramate [Topamax] 100 mg PO DAILY 04/30/18 04/30/18 History tiZANidine [Zanaflex] 4 mg PO TID 04/30/18 04/30/18 History Allergies Allergy/AdvReac Type Severity Reaction Status Date / Time No Known Allergies Allergy Verified 04/30/18 16:39 Physical Exam Vitals: Vital Signs Temp Pulse Pulse Resp BP BP Pulse Ox 05/01/18 15:00 98.1 F 70 16 113/62 99 05/01/18 08:00 84 16 05/01/18 07:00 98.3 F 84 16 129/70 96 05/01/18 03:23 16 05/01/18 02:56 98.4 F 79 16 119/76 93 L 05/01/18 00:00 16 04/30/18 21:10 14 04/30/18 20:11 98.3 F 76 16 123/73 98 04/30/18 18:58 99.1 F 79 15 117/71 95 Intake and Output 05/01/18 05/01/18 05/01/18 06:59 14:59 22:59 Intake Total 650 Balance 650 Intake: Intake, IV Titration 650 Amount Levofloxacin 750Mg-D5w 150 Pmx 750 mg In Dextrose/ Water 1 150ml.bag @ 100 mls/hr IVPB Q24H [facility] Rx#: [id number] Piperacillin-Tazobactam 3 100 .375 gm In Sodium Chloride 0.9% 100 ml @ 25 mls/hr IVPB Q8HR [facility] Rx# :[id number] Sodium Chloride 0.9% 1, 400 000 ml @ 100 mls/hr IV . Q10H [facility] Rx#:[id number] Other: # Voids 3 On physical examination, patient appears comfortable in no apparent distress. HEAD: Normocephalic, atraumatic. EYES: No scleral icterus. No conjunctival injection. MOUTH: No lesions, tongue midline. NECK: Trachea midline, no gross abnormalities. CHEST: Clear to auscultation with no wheezing or rhonchi appreciated. HEART: Regular rate and rhythm. ABDOMEN: Soft. Bowel sounds are positive. No organomegaly. No guarding or rigidity. EXTREMITIES: No pedal edema. SKIN: No rashes, no jaundice. NEUROLOGIC: Alert and oriented x3. No focal deficits. Results CBC & Chem 7: 05/01/18 07:20 05/01/18 07:20 Labs: Abnormal Lab Results - Last 24 Hours (Table) 05/01/18 05/01/18 05/01/18 Range/Units 03:20 03:20 07:20 Neutrophils # 7.8 H (1.3-7.7) k/uL Potassium (3.5-5.1) mmol/L Chloride (98-107) mmol/L Stool Lactoferrin POSITIVE H (NEGATIVE) C. difficile (EIA) Intrp Positive A (Negative) 05/01/18 Range/Units 07:20 Neutrophils # (1.3-7.7) k/uL Potassium 3.4 L (3.5-5.1) mmol/L Chloride 108 H (98-107) mmol/L Stool Lactoferrin (NEGATIVE) C. difficile (EIA) Intrp (Negative) Microbiology - Last 24 Hours (Table) 05/01/18 03:20 Stool Culture - Preliminary Stool CT scan - abdomen: report reviewed (Computed tomography scan of the abdomen consistent with moderate to severe pancolitis.) Assessment and Plan (1) Diarrhea Narrative/Plan: 52-year-old who was recently exposed to antibiotics for treatment of sinusitis who presents to the hospital with complaints of diarrhea and was found to have positive testing for Clostridium difficile with computed tomography scan of the abdomen showing pancolitis. Currently reporting improvement in symptoms on IV and oral antibiotic therapy. Current Visit: Yes Status: Acute Code(s): R19.7 - DIARRHEA, UNSPECIFIED SNOMED Code(s): 05310529 (2) Transaminitis Narrative/Plan: Likely related to bacteremia with ultrasound of the abdomen with findings of cholelithiasis without any CBD ductal dilation, or evidence of cholecystitis. Hepatitis A testing was negative, with other viral studies pending. We'll consider full serology if liver enzymes remain elevated. Current Visit: Yes Status: Acute Code(s): R74.0 - NONSPEC ELEV OF LEVELS OF TRANSAMNS & LACTIC ACID DEHYDRGNSE SNOMED Code(s): 712083932 (3) Abdominal pain Narrative/Plan: Secondary to above. Current Visit: Yes Status: Acute Code(s): R10.9 - UNSPECIFIED ABDOMINAL PAIN SNOMED Code(s): 85628329 (4) Leukocytosis Current Visit: Yes Status: Acute Code(s): D72.829 - ELEVATED WHITE BLOOD CELL COUNT, UNSPECIFIED SNOMED Code(s): 274058053 (5) Cholelithiasis Current Visit: Yes Status: Acute Code(s): K80.20 - CALCULUS OF GALLBLADDER W/O CHOLECYSTITIS W/O OBSTRUCTION SNOMED Code(s): 697792395 Plan: Supportive care Okay for liquid diet Continue by mouth vancomycin and IV Flagyl therapy Continue to monitor CBC, CMP and liver enzymes Hepatitis A tested negative, other viral studies pending Consider full serology if liver enzymes do not improve CT imaging and ultrasound imaging reviewed Thank you for allowing us to participate in the care of the patient we will continue to follow
[2018-05-01] MEDS: NORTRIPTYLINE 25 MG CAP PO SCH (20:01)
[2018-05-01] MEDS: HEPARIN SODIUM,PORCINE 5,000 UNIT/ML 1 ML VIAL SQ SCH (20:01)
[2018-05-01] MEDS: CHERRY FLAVOR 60 ML BOTTLE PO PRN (23:37)
[2018-05-02] MEDS: SODIUM CHLORIDE 0.9% 1,000 ML IV SCH ×3 (02:25→20:21)
[2018-05-02 03:16] VITALS: RESP 16
[2018-05-02] MEDS: metroNIDAZOLE-NS PMX 500 MG in SALINE 1 100ML.BAG IVPB SCH ×3 (05:41→22:27)
[2018-05-02] MEDS: VANCOMYCIN ORAL SOLUTION 250 MG/5 ML BOTTLE PO SCH ×4 (05:42→23:50)
[2018-05-02 06:55] LABS: HCT 38.3 % (34.0-46.0); HGB 12.7 gm/dL (11.4-16.0); MCH 30.5 pg (25.0-35.0); MCV 92.4 fL (80.0-100.0); Mean Platelet Volume 6.2; Platelet Count 385 k/uL (150-450); RBC 4.15 m/uL (3.80-5.40); RDW 12.2 % (11.5-15.5); WBC 12.1 k/uL (3.8-10.6)
[2018-05-02 07:13] LABS: ALT 71 U/L (9-52); AST 30 U/L (14-36); Albumin 2.9 g/dL (3.5-5.0); Alkaline Phosphatase 141 U/L (38-126); Anion Gap 6 mmol/L; Bilirubin, Delta 0.1 mg/dL (0.0-0.2); Bilirubin,Unconjugated 0.2 mg/dL (0.0-1.1); Blood Urea Nitrogen 5 mg/dL (7-17); Calcium 8.8 mg/dL (8.4-10.2); Carbon Dioxide 23 mmol/L (22-30); Chloride 111 mmol/L (98-107); Glucose 116 mg/dL (74-99); Potassium 3.3 mmol/L (3.5-5.1); Sodium 140 mmol/L (137-145); Total Bilirubin 0.3 mg/dL (0.2-1.3); Total Protein 5.5 g/dL (6.3-8.2)
[2018-05-02] MEDS ORDERED: POTASSIUM CHLORIDE ER 20 MEQ TAB.ER PO STA (07:43)
[2018-05-02] MEDS: PANTOPRAZOLE 40 MG/10 ML VIAL IVP SCH (09:13)
[2018-05-02] MEDS: HYDROcodone/APAP 7.5-325MG 1 EACH TAB PO SCH ×3 (09:13→22:26)
[2018-05-02] MEDS: tiZANidine 4 MG TAB PO SCH ×3 (09:15→22:27)
[2018-05-02] MEDS: POTASSIUM CHLORIDE ER 20 MEQ TAB.ER PO SCH ×2 (09:15→20:21)
[2018-05-02] MEDS: GABAPENTIN 300 MG CAP PO SCH ×3 (09:15→22:26)
[2018-05-02] MEDS: FUROSEMIDE 20 MG TAB PO SCH (09:15)
[2018-05-02] MEDS: ATENOLOL 50 MG TAB PO SCH (09:16)
[2018-05-02] MEDS: HEPARIN SODIUM,PORCINE 5,000 UNIT/ML 1 ML VIAL SQ SCH ×2 (09:16→20:21)
[2018-05-02] MEDS: TOPIRAMATE 100 MG TAB PO SCH (09:21)
--- NOTE | 2018-05-02 13:28 | P.PN ---
Subjective Progress Note Date: 05/02/18 Patient is feeling better today. She is still having some diarrhea. Minimal abdominal pain. She's tolerating a diet. Objective - Vital Signs Vital signs: Vital Signs Temp 97.9 F 05/02/18 07:28 Pulse 79 05/02/18 07:28 Resp 16 05/02/18 07:28 BP 120/84 05/02/18 07:28 Pulse Ox 92 L 05/02/18 07:28 Intake & Output 05/01/18 05/02/18 05/02/18 18:59 06:59 18:59 Intake Total 1150 Output Total 2 Balance 1150 -2 Intake: Intake, IV Titration 900 Amount Sodium Chloride 0.9% 1, 800 000 ml @ 100 mls/hr IV . Q10H [facility] Rx#:[id number] metroNIDAZOLE-NS PMX 500 100 mg In Saline 1 100ml.bag @ 100 mls/hr IVPB Q8H [facility] Rx#:[id number] Oral 250 Output: Urine 2 Other: # Voids 3 1 # Bowel Movements 2 4 - Constitutional General appearance: Present: cooperative - Respiratory Details: Nonlabored - Cardiovascular Rhythm: regular - Gastrointestinal Gastrointestinal Comment(s): Soft nontender nondistended no rebound rigidity or guarding - Psychiatric Psychiatric: Present: A&O x's 3 - Labs CBC & Chem 7: 05/02/18 06:35 05/02/18 06:35 Labs: Abnormal Lab Results - Last 24 Hours (Table) 05/02/18 05/02/18 Range/Units 06:35 06:35 WBC 12.1 H (3.8-10.6) k/uL Potassium 3.3 L (3.5-5.1) mmol/L Chloride 111 H (98-107) mmol/L BUN 5 L (7-17) mg/dL Glucose 116 H (74-99) mg/dL ALT 71 H (9-52) U/L Alkaline Phosphatase 141 H (38-126) U/L Total Protein 5.5 L (6.3-8.2) g/dL Albumin 2.9 L (3.5-5.0) g/dL Microbiology - Last 24 Hours (Table) 04/30/18 22:30 Blood Culture - Preliminary Blood No Growth after 24 hours 05/01/18 03:20 Stool Culture - Preliminary Stool Assessment and Plan Assessment: 1. C. diff colitis 2. Symptomatic cholelithiasis Plan: Patient does seem to be improving. Continue Flagyl and oral Vanco. She can follow-up as an outpatient for elective cholecystectomy. No plans for acute surgical intervention
--- NOTE | 2018-05-02 14:34 | P.PN ---
Subjective Progress Note Date: 05/02/18 The patient was seen and examined at the bedside on 05/02/18. The patient notes that her diarrhea has improved significantly, and she had 10 bowel movements in the past 24 hours as opposed to 20 the prior day. She otherwise denied fever, chills, nausea, vomiting, chest pain, or shortness breath. Objective - Vital Signs Vital signs: Vital Signs Temp 97.9 F 05/02/18 07:28 Pulse 79 05/02/18 07:28 Resp 16 05/02/18 07:28 BP 120/84 05/02/18 07:28 Pulse Ox 92 L 05/02/18 07:28 Intake & Output 05/01/18 05/02/18 05/02/18 18:59 06:59 18:59 Intake Total 1150 Output Total 2 Balance 1150 -2 Intake: Intake, IV Titration 900 Amount Sodium Chloride 0.9% 1, 800 000 ml @ 100 mls/hr IV . Q10H [facility] Rx#:[id number] metroNIDAZOLE-NS PMX 500 100 mg In Saline 1 100ml.bag @ 100 mls/hr IVPB Q8H [facility] Rx#:[id number] Oral 250 Output: Urine 2 Other: # Voids 3 1 1 # Bowel Movements 2 4 - Exam General: Non-toxic, in no acute distress, appears stated age, obese HEENT: NC/AT, anicteric sclerae, moist conjunctiva, no lid-lag, PERRLA Cardiovascular: S1/S2 wnl, no murmurs, rubs, or gallops Lungs: Clear to auscultation, normal respiratory effort, no accessory muscle use Abdominal: Soft, no tenderness to palpation, non-distended, no guarding, rebound, or rigidity Skin: Warm, dry Extremities: No edema or contractures Psychiatric: Alert and oriented to person, place and time, appropriate affect Neuro: CN II-XII grossly intact, Strength 5/5 in all 4 extremities, Speech intact, Sensation to light touch grossly intact throughout - Labs CBC & Chem 7: 05/02/18 06:35 05/02/18 06:35 Labs: Abnormal Lab Results - Last 24 Hours (Table) 05/02/18 05/02/18 Range/Units 06:35 06:35 WBC 12.1 H (3.8-10.6) k/uL Potassium 3.3 L (3.5-5.1) mmol/L Chloride 111 H (98-107) mmol/L BUN 5 L (7-17) mg/dL Glucose 116 H (74-99) mg/dL ALT 71 H (9-52) U/L Alkaline Phosphatase 141 H (38-126) U/L Total Protein 5.5 L (6.3-8.2) g/dL Albumin 2.9 L (3.5-5.0) g/dL Microbiology - Last 24 Hours (Table) 04/30/18 22:30 Blood Culture - Preliminary Blood No Growth after 24 hours Assessment and Plan Plan: C. diff colitis -Will continue with metronidazole and oral vancomycin -Continue with normal saline 100 mL an hour -Continue with Zofran -Surgery and GI accommodation appreciated -Patient will follow-up as an outpatient for elective cholecystectomy -Continue with contact precautions Leukocytosis -Resolved Hypokalemia -Will supplement DVT//GI prophylaxis -Heparin -No indication for GI prophylaxis Discussed with: Patient Anticipated discharge date: 05/03/[address]: Home A total of 35 minutes was spent on the care of this complex patient more than 50% of the time was spent in counseling and care coordination.
--- NOTE | 2018-05-02 18:16 | P.PN ---
Subjective Progress Note Date: 05/02/18 Principal diagnosis: Clostridium difficile colitis Patient tolerating liquids. No abdominal pain reported. Reports she still having loose bowel movements, however frequency is improved. Objective - Vital Signs Vital signs: Vital Signs Temp 98.0 F 05/02/18 15:00 Pulse 78 05/02/18 15:00 Resp 16 05/02/18 16:00 BP 122/84 05/02/18 15:00 Pulse Ox 94 L 05/02/18 15:00 Intake & Output 05/01/18 05/02/18 05/02/18 18:59 06:59 18:59 Intake Total 1150 Output Total 2 Balance 1150 -2 Intake: Intake, IV Titration 900 Amount Sodium Chloride 0.9% 1, 800 000 ml @ 100 mls/hr IV . Q10H LIBRADO Rx#:[id number] metroNIDAZOLE-NS PMX 500 100 mg In Saline 1 100ml.bag @ 100 mls/hr IVPB Q8H LIBRADO Rx#:[id number] Oral 250 Output: Urine 2 Other: # Voids 3 1 1 # Bowel Movements 2 4 - Exam On physical examination, patient appears comfortable in no apparent distress. HEAD: Normocephalic, atraumatic. EYES: No scleral icterus. No conjunctival injection. MOUTH: No lesions, tongue midline. NECK: Trachea midline, no gross abnormalities. CHEST: Clear to auscultation with no wheezing or rhonchi appreciated. HEART: Regular rate and rhythm. ABDOMEN: Soft, obese. Bowel sounds are positive. No organomegaly. No guarding or rigidity. EXTREMITIES: No pedal edema. SKIN: No rashes, no jaundice. NEUROLOGIC: Alert and oriented x3. No focal deficits. - Labs CBC & Chem 7: 05/02/18 06:35 05/02/18 06:35 Labs: Abnormal Lab Results - Last 24 Hours (Table) 05/02/18 05/02/18 Range/Units 06:35 06:35 WBC 12.1 H (3.8-10.6) k/uL Potassium 3.3 L (3.5-5.1) mmol/L Chloride 111 H (98-107) mmol/L BUN 5 L (7-17) mg/dL Glucose 116 H (74-99) mg/dL ALT 71 H (9-52) U/L Alkaline Phosphatase 141 H (38-126) U/L Total Protein 5.5 L (6.3-8.2) g/dL Albumin 2.9 L (3.5-5.0) g/dL Microbiology - Last 24 Hours (Table) 04/30/18 22:30 Blood Culture - Preliminary Blood No Growth after 24 hours Assessment and Plan (1) Diarrhea Narrative/Plan: 52-year-old who was recently exposed to antibiotics for treatment of sinusitis who presents to the hospital with complaints of diarrhea and was found to have positive testing for Clostridium difficile with computed tomography scan of the abdomen showing pancolitis. Currently reporting improvement in symptoms on IV and oral antibiotic therapy. Current Visit: Yes Status: Acute Code(s): R19.7 - DIARRHEA, UNSPECIFIED S NOMED Code(s): 39110464 (2) Transaminitis Narrative/Plan: Likely related to bacteremia with ultrasound of the abdomen with findings of cholelithiasis without any CBD ductal dilation, or evidence of cholecystitis. Hepatitis A testing was negative, with other viral studies pending. We'll consider full serology if liver enzymes remain elevated. Current Visit: Yes Status: Acute Code(s): R74.0 - NONSPEC ELEV OF LEVELS OF TRANSAMNS & LACTIC ACID DEHYDRGNSE SNOMED Code(s): 445529237 (3) Abdominal pain Narrative/Plan: Secondary to above. Current Visit: Yes Status: Acute Code(s): R10.9 - UNSPECIFIED ABDOMINAL PAIN SNOMED Code(s): 18815696 (4) Leukocytosis Current Visit: Yes Status: Acute Code(s): D72.829 - ELEVATED WHITE BLOOD CELL COUNT, UNSPECIFIED SNOMED Code(s): 050640601 (5) Cholelithiasis Current Visit: Yes Status: Acute Code(s): K80.20 - CALCULUS OF GALLBLADDER W/O CHOLECYSTITIS W/O OBSTRUCTION SNOMED Code(s): 141141789 Plan: Supportive care Okay for liquid diet Continue by mouth vancomycin and IV Flagyl therapy Continue to monitor CBC, CMP and liver enzymes Hepatitis A tested negative, other viral studies pending Consider full serology if liver enzymes do not improve CT imaging and ultrasound imaging reviewed Thank you for allowing us to participate in the care of the patient we will con tinue to follow
[2018-05-02] MEDS: NORTRIPTYLINE 25 MG CAP PO SCH (20:21)
[2018-05-02] MEDS: CHERRY FLAVOR 60 ML BOTTLE PO PRN (23:50)
[2018-05-03] MEDS: SODIUM CHLORIDE 0.9% 1,000 ML IV SCH (05:43)
[2018-05-03] MEDS: CHERRY FLAVOR 60 ML BOTTLE PO PRN ×2 (05:43→11:44)
[2018-05-03] MEDS: metroNIDAZOLE-NS PMX 500 MG in SALINE 1 100ML.BAG IVPB SCH (05:43)
[2018-05-03] MEDS: VANCOMYCIN ORAL SOLUTION 250 MG/5 ML BOTTLE PO SCH ×2 (05:44→11:43)
[2018-05-03 07:49] VITALS: BP 161/82; PULSE 80; TEMP 97.7
[2018-05-03] MEDS: HEPARIN SODIUM,PORCINE 5,000 UNIT/ML 1 ML VIAL SQ SCH (07:59)
[2018-05-03] MEDS: TOPIRAMATE 100 MG TAB PO SCH (08:00)
[2018-05-03] MEDS: GABAPENTIN 300 MG CAP PO SCH (08:00)
[2018-05-03] MEDS: tiZANidine 4 MG TAB PO SCH (08:00)
[2018-05-03] MEDS: POTASSIUM CHLORIDE ER 20 MEQ TAB.ER PO SCH (08:00)
[2018-05-03] MEDS: HYDROcodone/APAP 7.5-325MG 1 EACH TAB PO SCH (08:00)
[2018-05-03] MEDS: ATENOLOL 50 MG TAB PO SCH (08:01)
[2018-05-03] MEDS: FUROSEMIDE 20 MG TAB PO SCH (08:01)
[2018-05-03] MEDS ORDERED: PANTOPRAZOLE 40 MG TABLET PO SCH (09:00)
[2018-05-03 10:40] LABS: Hepatitis B Core IgM Non-Reactive (Non-Reactive)
--- NOTE | 2018-05-03 11:06 | P.DS ---
Providers Date of admission: 05/02/18 12:27 Expected date of discharge: 05/03/18 Attending physician: Kirt Ibanez MD Consults: 04/30/18 18:25 Consult Physician Routine Consulting Provider: Wilfredo Servin Consult Reason/Comments: Symptomatic cholelithiasis Do you want consulting provider notified?: Yes 04/30/18 22:52 Consult Physician Routine Consulting Provider: Ml Guillaume Consult Reason/Comments: pancoliitis Do you want consulting provider notified?: Yes, Notify in am Primary care physician: Bennie Bennett [facility] Course: The patient is a 52-year-old female with a PMH of hypertension, migraine headaches, and chronic pain status post cervical laminectomy, and confusion presented to the ED with chief complaints of abdominal pain, diarrhea, fever, chills, and night sweats. The patient had reported upwards of 20 bowel movements in the last 24 hours prior to presentation. The patient also reported that she had been receiving several courses of oral antibiotics to treat her presumed sinusitis and cervical lymphadenopathy. The patient underwent an extensive evaluation in the emergency room with WBC count elevated at 15.2, potassium 3.4, and an abdomen/pelvis CAT scan revealing moderate to severe pancolitis consistent with an infectious etiology. C. diff antigen was ordered and returned positive. The patient was subsequently admitted to the medicine service for C. diff colitis. She was started on IV metronidazole and oral Flagyl with GI on consult. The patient was also evaluated by the surgery service for reported right upper quadrant abdominal pain. The patient was advised by the surgery service to follow up as an outpatient for possible elective cholecystectomy. The patient's diarrhea gradually improved and her diet was advanced to full liquids which she tolerated well. The patient was seen and examined at the bedside on the day of discharge. She reported that she now has semi-formed stools and reported no further abdominal pain, fever, or chills. She noted only 3 bowel movements in the past 12 hours. The patient is presently stable, ready, and agreeable for discharge to home. The patient was advised that if her symptoms worsen, that she should return to the ED. Physical Examination General: Non-toxic, in no acute distress, appears stated age, obese HEENT: NC/AT, anicteric sclerae, moist conjunctiva, no lid-lag, PERRLA Cardiovascular: S1/S2 wnl, no murmurs, rubs, or gallops Lungs: Clear to auscultation, normal respiratory effort, no accessory muscle use Abdominal: Soft, non-tender, non-distended, no guarding, rebound, or rigidity Skin: Warm, dry Extremities: No edema or contractures Psychiatric: Alert and oriented to person, place and time, appropriate affect Neuro: CN II-XII grossly intact, Strength 5/5 in all 4 extremities, Speech intact, Sensation to light touch grossly intact throughout Discharge diagnosis: C. diff pancolitis, hypokalemia, deranged LFTs, leukocytosis A total of 45 minutes of time were spent preparing this complex discharge summary. Pertinent Studies: As per HPI Procedures: As per HPI Patient Condition at Discharge: Fair Plan - Discharge Summary Discharge Rx Participant: Yes New Discharge Prescriptions: New metroNIDAZOLE [Flagyl] 500 mg PO Q8HR 8 Days #24 tab Vancomycin Oral Solution 125 mg PO Q6HR 8 Days #80 ml Continue Omeprazole [PriLOSEC] 10 mg PO BID Nortriptyline [Pamelor] 50 mg PO HS tiZANidine [Zanaflex] 4 mg PO TID Butalb/APAP/Caff 50-325-40Mg [Fioricet 50-325-40] 1 tab PO DAILY PRN PRN Reason: Headache Atenolol [Tenormin] 50 mg PO DAILY Furosemide [Lasix] 20 mg PO DAILY Calcium Carbonate [Tums] 500 mg PO DIRECTED PRN PRN Reason: Heartburn Albuterol Sulfate [Proair Hfa] 2 puff INHALATION DAILY PRN PRN Reason: Shortness Of Breath Potassium Chloride ER [K-Dur 20] 20 meq PO BID Gabapentin 600 mg PO TID HYDROcodone/APAP 10-325MG [Cow[place] 10-325] 1 tab PO HS Topiramate [Topamax] 100 mg PO DAILY Discontinued HYDROcodone/APAP 7.5-325MG [[place] 7.5-325] 1 tab PO TID Discharge Medication List Albuterol Sulfate [Proair Hfa] 2 puff INHALATION DAILY PRN 04/30/18 [History] Atenolol [Tenormin] 50 mg PO DAILY 04/30/18 [History] Butalb/APAP/Caff 50-325-40Mg [Fioricet 50-325-40] 1 tab PO DAILY PRN 04/30/18 [History] Calcium Carbonate [Tums] 500 mg PO DIRECTED PRN 04/30/18 [History] Furosemide [Lasix] 20 mg PO DAILY 04/30/18 [History] Gabapentin 600 mg PO TID 04/30/18 [History] HYDROcodone/APAP 10-325MG [[place] 10-325] 1 tab PO HS 04/30/18 [History] Nortriptyline [Pamelor] 50 mg PO HS 04/30/18 [History] Omeprazole [PriLOSEC] 10 mg PO BID 04/30/18 [History] Potassium Chloride ER [K-Dur 20] 20 meq PO BID 04/30/18 [History] Topiramate [Topamax] 100 mg PO DAILY 04/30/18 [History] tiZANidine [Zanaflex] 4 mg PO TID 04/30/18 [History] Vancomycin Oral Solution 125 mg PO Q6HR 8 Days #80 ml 05/03/18 [Rx] metroNIDAZOLE [Flagyl] 500 mg PO Q8HR 8 Days #24 tab 05/03/18 [Rx] Follow up Appointment(s)/Referral(s): Bennie Bennett MD [Primary Care Provider] - 1-2 days Patient Instructions/Handouts: C Diff (Clostridium Difficile) Infection (GEN) Discharge Disposition: HOME SELF-CARE
== END 2018-05-03 13:19 | disposition home or self-care (01) | DRG 373 ==
LOC: EC 14:18 → 4SSUR 18:04 → OBSVTOIN 05-02 12:27
PROVIDERS: ADMIT Family Medicine; ATTEND Family Medicine
DX: A04.72 Enterocolitis due to Clostridium difficile, not specified as recurrent (principal); E86.0 Dehydration; E87.6 Hypokalemia; J45.909 Unspecified asthma, uncomplicated; K21.9 Gastro-esophageal reflux disease without esophagitis; I10 Essential (primary) hypertension; G43.909 Migraine, unspecified, not intractable, without status migrainosus; K80.20 Calculus of gallbladder without cholecystitis without obstruction; G89.29 Other chronic pain; Z79.891 Long term (current) use of opiate analgesic; Z79.899 Other long term (current) drug therapy; Z90.710 Acquired absence of both cervix and uterus; Z98.1 Arthrodesis status; Z83.3 Family history of diabetes mellitus; Z82.49 Family history of ischemic heart disease and other diseases of the circulatory system; Z82.5 Family history of asthma and other chronic lower respiratory diseases; Z83.49 Family history of other endocrine, nutritional and metabolic diseases
CPT/HCPCS: 36415; 74176; 76705; 80048; 80053; 80074; 80076; 81001; 82150; 83630; 83690; 83735; 84484; 85025; 85027; 85610; 86308; 87040; 87045; 87046; 87324; 93005; 96361; 96374; 96375; 96376; 99285

== ENCOUNTER → 2021-09-04 | Outpatient (CLI) | payer BC, MEDICARE ==
--- NOTE | 2021-09-04 10:53 | MM ---
Reason for Exam: Hx of benign breast biopsy. Last mammogram was performed 1 year(s) and 6 month(s) ago. Indicated Problems: Difficult physical exam of both sides : 6 oclock area on bilat feel lumps. Patient History: Menarche at age 14. First Full-Term at age 14. Left ovary removed at age 44. Right ovary removed at age 44. Hysterectomy at age 44. Postmenopausal. 06/23/2004, Excisional Biopsy on the Left side. Paternal aunt had breast cancer, age 55. Mother had breast cancer, age 66. Risk Values: Franc[place]sca 5 year model risk: 2.4%. NCI Lifetime model risk: 15.8%. Prior Study Comparison: 04/06/2018 Bilateral MG 3D screening mammo w/cad, [facility]. 02/23/2020 Bilateral MG 3D screening mammo w/cad, [facility]. Tissue Density: The breast tissue is heterogeneously dense. This may lower the sensitivity of mammography. Findings: Analyzed By CAD. MIKO Alvarez parenchymal tissue pattern appears stable. No suspicious spiculated or lobular masses, clusters of microcalcifications, architectural distortion or other secondary signs of malignancy are radiographically apparent. Postsurgical changes are noted left breast. Markers were placed for palpable areas within the bilateral breasts. No underlying mammographic abnormality is identified. Ultrasound is recommended for additional workup. Overall Assessment: Incomplete: need additional imaging evaluation, BI-RAD 0 Management: Diagnostic Breast Ultrasound of both breasts. A clinical breast exam by your physician is recommended on an annual basis and results should be correlated with mammographic findings. This exam should not preclude additional follow-up of suspicious palpable abnormalities. Results were given to the patient verbally at the time of exam. Electronically signed and approved by: Julius Wren D.O. Radiologis
--- NOTE | 2021-09-04 11:30 | USB ---
Reason for Exam: Clinical finding. Patient History: Menarche at age 14. First Full-Term at age 14. Left ovary removed at age 44. Right ovary removed at age 44. Hysterectomy at age 44. Postmenopausal. 06/23/2004, Excisional Biopsy on the Left side. Paternal aunt had breast cancer, age 55. Mother had breast cancer, age 66. Risk Values: Franchesca 5 year model risk: 2.4%. NCI Lifetime model risk: 15.8%. Technique: Method: Targeted. Prior Study Comparison: 04/06/2018 Bilateral MG 3D screening mammo w/cad, [facility]. 02/23/2020 Bilateral MG 3D screening mammo w/cad, [facility]. Findings: The area of palpable concern of both breasts was scanned. No solid or cystic masses are identified. No suspicious abnormality to correspond to the palpable regions are identified.. Overall Assessment: Benign, BI-RAD 2 Management: Screening Mammogram of both breasts in 1 year. A clinical breast exam by your physician is recommended on an annual basis and results should be correlated with mammographic findings. Clinical management of the patient's palpable regions. Negative mammogram or negative ultrasound should not preclude biopsy of suspicious palpable abnormalities. Electronically signed and approved by: Julius Wren D.O. Radiologis
== END | disposition home or self-care (01) ==
LOC: RADMAMWWP 09:21
PROVIDERS: ATTEND Family Medicine
DX: R92.8 Other abnormal and inconclusive findings on diagnostic imaging of breast (principal); Z78.0 Asymptomatic menopausal state; Z80.3 Family history of malignant neoplasm of breast
CPT/HCPCS: 77062; 77066

== ENCOUNTER → 2022-06-12 | Outpatient (CLI) | payer BC, MEDICARE ==
--- NOTE | 2022-06-12 11:57 | MR ---
EXAMINATION TYPE: MR knee RT wo con DATE OF EXAM: 06/12/2022 COMPARISON: NONE HISTORY: Rt Knee pain, swelling and locks for months. TECHNIQUE: Multiplanar, multisequence images of the knee is performed without IV contrast. FINDINGS: MEDIAL MENISCUS: Faint increased signal posterior horn does not definitively extend to articular surf sue. LATERAL MENISCUS: Anterior and posterior horns are intact without tear. CRUCIATE LIGAMENTS: The anterior and posterior cruciate ligaments are intact and unremarkable. COLLATERAL LIGAMENTS: The medial collateral ligament and lateral collateral ligament complex are inta ct and unremarkable. EXTENSOR MECHANISM: Visualized quadriceps and patellar tendons are intact. EFFUSION: Small size suprapatellar joint effusion. POPLITEAL CYST: No popliteal/pan cyst. TRICOMPARTMENT SPACES: Moderate to advanced narrowing patellofemoral compartment with mild to moderat e spurring medially. Mild to moderate narrowing and spurring medial and lateral tibiofemoral compartm ents. CARTILAGE: Chondromalacia patella with cartilaginous loss including full thickness defects along the posterior patellar pole. Areas of fissuring and cartilaginous loss lateral aspect of the distal media l femoral condyle BONE MARROW SIGNAL: Areas of heterogeneous increased T2 and diminished T1 signal along the posterior patellar pole. There is diminished T1 and increased T2 signal lateral aspect of the distal medial fem oral condyle at site of cartilaginous loss. OTHER: Mild edema in the deep subcutaneous tissue near level of the fibular head and lateral aspect o f the patella. IMPRESSION: 1. Possible intrasubstance tear of the posterior horn medial meniscus. No full-thickness meniscal or ligamentous tear is seen. 2. Tricompartment degenerative changes that are fairly moderate to advanced patellofemoral compartmen t and at least moderate involving the medial tibiofemoral compartment as detailed above. 3. Small size suprapatellar joint effusion.
== END | disposition home or self-care (01) ==
LOC: RADMRIMAIN 11:08
PROVIDERS: ATTEND Orthopaedic Surgery
DX: M17.11 Unilateral primary osteoarthritis, right knee (principal); M25.461 Effusion, right knee

== ENCOUNTER → 2022-07-09 | Outpatient (CLI) | payer BC, MEDICARE ==
--- NOTE | 2022-07-09 08:12 | CT ---
EXAMINATION TYPE: CT cervical spine wo con DATE OF EXAM: 07/09/2022 COMPARISON: Cervical spine outside x-ray July 03, 2022 HISTORY: Neck pain radiating down bilateral shoulders and right arm. CT DLP: 376.2 mGycm. Automated Exposure Control for Dose Reduction was Utilized. TECHNIQUE: CT scan of the cervical spine is obtained without contrast, axial images are obtained, sa gittal and coronal reformatted images are also reviewed. FINDINGS: Cervical spine is visualized in its entirety from C1 through upper thoracic levels, demonst rates straightened alignment. There is slight grade 1 anterolisthesis C7 on T1. Prevertebral soft tis liu appears within normal limits. The C1-C2 articulation is within normal limits on the coronal imag es. Evidence of prior surgery with artificial disc material and ossific fusion from C3 through C7 lev els anteriorly. Mild to moderate disc space narrowing and moderate anterior spurring at C7-T1 level. Spinal canal grossly preserved. Review of axial images shows C2-C3 level to appear within normal limits. Axial images at C3-C4 through C6-C7 levels show spinal canal to appear preserved bilateral neural for jennifer to appear patent. Axial images at C7-T1 level shows spondylolisthesis with small central disc protrusion mildly effacin g the anterior thecal sac on axial image 74. Bilateral neural foramina are patent. Lung apices show no pneumothorax. Thyroid gland appears normal in size. IMPRESSION: Desired ossific fusion or arthrodesis C3-C7 levels. Spondylolisthesis and degenerative c hange C7-T1 level is noted.
== END | disposition home or self-care (01) ==
LOC: RADCTMAIN 07:45
PROVIDERS: ATTEND Orthopaedic Surgery
DX: M43.13 Spondylolisthesis, cervicothoracic region (principal); M47.22 Other spondylosis with radiculopathy, cervical region; Z98.1 Arthrodesis status
CPT/HCPCS: 72125

== ENCOUNTER → 2022-07-14 | Outpatient (CLI) | payer BC, MEDICARE ==
--- NOTE | 2022-07-14 08:20 | MR ---
EXAMINATION TYPE: MR cervical spine wo con DATE OF EXAM: 07/14/2022 COMPARISON: CT 07/09/2022 HISTORY: 56-year-old female M47.22 Neck pain, RUE radiculopathy, headaches. TECHNIQUE: Multiplanar, multisequence images of the cervical spine were acquired without contrast. FINDINGS: The craniocervical junction, predental space widening, or prevertebral soft tissue swelling. There is mature interbody ankylosis from C3 through C7 levels. Mild degenerative disc desiccation lower cervical and upper thoracic spine. Facet arthropathy with a joint effusion particularly on the right C7-T1 weighted trace grade 1 anterolisthesis. No focal disc herniation or spinal canal stenosis is seen. Hyperostotic changes contribute to moderate narrowing of the neuroforamen on the right at C7-T1. Mild on both sides at C4-C5. Normal course, caliber, and signal intensity of the cervical spinal cord. No suspicious bone marrow placement. IMPRESSION: 1. 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 Mild degenerative d isc disease and facet arthropathy below the level of fusion at C7-T1 with a trace degenerative grade 1 anterolisthesis. 2. Facet arthropathy at C7-T1 is asymmetric to the right with associated facet joint effusion and a m oderate right neuroforaminal stenosis.
== END | disposition home or self-care (01) ==
LOC: RADMRIMAIN 05:56
PROVIDERS: ATTEND Orthopaedic Surgery
DX: M50.13 Cervical disc disorder with radiculopathy, cervicothoracic region (principal); M47.23 Other spondylosis with radiculopathy, cervicothoracic region; M48.03 Spinal stenosis, cervicothoracic region; Z98.1 Arthrodesis status
CPT/HCPCS: 72141

== ENCOUNTER → 2022-09-24 | Outpatient (CLI) | payer BC, MEDICARE | END | disposition home or self-care (01) | LOC: LABPAT 08:55 | PROVIDERS: ATTEND Orthopaedic Surgery | DX: Z01.812 Encounter for preprocedural laboratory examination (principal); M48.01 Spinal stenosis, occipito-atlanto-axial region; M43.12 Spondylolisthesis, cervical region; Z22.322 Carrier or suspected carrier of Methicillin resistant Staphylococcus aureus | CPT/HCPCS: 86850; 86900; 86901; 87070 ==

== ENCOUNTER 2022-09-30 07:30 | Inpatient (IN) | payer BC, MEDICARE ==
--- NOTE | 2022-09-26 17:29 | P.HPOR ---
History of Present Illness H&P Date: 09/25/22 .D:Date: 09/25/22 : 02:24pm .T:Title: [facility] Date of :65 [id number]: NKDA Age: 56 year Height: 5'4" Weight: 180 lbs BMI: 30.90 kg/m2 Occupation: Retired VAS: 7 CHIEF COMPLAINT: Preoperative evaluation for C2-T2 posterior decompression and fusion DOI: N/A DOS: 2012, 2014, & 2018 Duration of current treatment regiment:N/A HISTORY: Xrays New xrays taken in office Trauma or injury No Work-Related No Pain description Aching, burning, sharp, & increasing Location Diffuse Patient notes that their pain radiates to right upper extremity Activity Modification Yes Hand Dominance Right TREATMENTS COMPLETED: 6 weeks of PT completed? Month and Year of last PT date? Yes Several years ago Physician directed home exercise completed? Yes Medications Yes; List: Fioricet, Gabapentin, Manchester, Tylenol, Advil, Aleve, and Tizanidine Alternative interventions Chiropractic:No Massage therapy:No R.I.C.E:Yes Brace:No Injections Yes How many? 1 Did they help? Yes RFA:No SUBJECTIVE: Ms. Messer returns to the office today for a preoperative evaluation preceeding her previously scheduled C2-T2 posterior decompression and fusion. She continues to have neck pain and base of the neck pain that is unrelenting and has not gotten better with conservative measures. She has b/l UE paresthesias and radiculopathy that is moderate and seems to be getting worse. We discussed at length surgery and non surgical options. She is ready and willing to proceed with surgery and willing to assume all the risks of surgery. SUBJECTIVE: Ms. Messer returns to the office on 07/30/2022 for a re-check on her neck pain and to review results from her recent MRI and CT scan of the cervical spine. The patient has previously underwent surgical intervention in the form of a C3-7 ACDF in 2019. The patient reports experiencing continued diffuse neck pain that radiates down into the right upper extremity. The patient notes continued radicular symptoms throughout the right upper extremity, which she feels has gradually worsened since she was last evaluated in office on 07/03/2022. The patient also reports experiencing continued headaches which are becoming more frequent. Overall, the patient has seen a progressive increase in her symptoms since their initial onset. The patient states that her current symptoms are exacerbated by all activity. The patient has been experiencing severe sleep disturbances as well due to her ongoing symptoms. The patient states that her symptoms have become debilitating and are significantly affecting her overall quality of life. The patient states that her symptoms prohibit her from completing any of her regular activities of daily living. The patient has trailed conservative treatment measures in the form of physical therapy, at home stretches and exercises, at home ice/heat therapies, activity modification, cervical epidural steroid injections, and medication management, all with no significant or sustained relief. The patient is currently taking Fioricet, Gabapentin, Manchester, Tizanidine, Tylenol, Advil, and Aleve, with very minimal relief of her symptoms. Otherwise the patient denies any f/c/sob/cp, no incision concerns, no bladder or bowel retention/incontinence, no perineal numbness/tingling, and ambulates independently today. Ms. Messer presents to the office on 07/03/2022 for an evaluation of their neck pain. Patient reports experiencing cervical pain for the last several years with no known occurrence of injury or trauma. The patient notes diffuse neck pain that radiates down into the right upper extremity, associated with tinging and numbness throughout and into the hand/fingertips. The patient has been experiencing worsening headaches since the onset of her cervical pain. Overall, the patient has seen a progressive increase in her symptoms since their onset. Ms. Messer's symptoms are exacerbated with all activities, and due to this she notes that is it increasingly difficult for her to complete many of her daily tasks. The patient is having severe sleep disturbances as well due to their ongoing pain and associated symptoms. Regarding treatments, the patient has previously trialed an epidural steroid injection with some relief and physical therapy many years ago, which she felt made her pain worse. Patient denies trialing any other modalities at this time. For their symptoms, the patient has been taking Fioricet, Gabapentin, Manchester, and Tizanidine with some relief of her current symptoms. Otherwise the patient denies any f/c/sob/cp, no incision concerns, no bladder or bowel retention/incontinence, no perineal numbness/tingling, and ambulates independently today. The patients' past social, medical, family, surgical history, as well as review of systems, have been reviewed. Please refer to the Neurosurgery History and Physical form that has been scanned in to our electronic medical record system. 14 points review of systems completed and as stated in HPI, all other systems reviewed are negative. Social History: [id number]:never a smoker P3 Alcohol:none Family History: P1Pufjbz: , CHF, coronary artery disease,hypertension P2 Father: , coronary artery, disease CHF, obesity, COPD Sibling(s): alive & well Family History: breast cancer, hypertension, colon cancer Past Medical History: HYPERTENSION Surgical / Procedural History: CHOLECYSTECTOMY HYSTERECTOMY SPINAL SURGERY Current Medications: P1Rx: atenoloL 25 mg tablet Ref: 0 Rx: lsvwcdeoes-ppxkkiajfxuwy-tsiafrlb 50 mg-300 mg-40 mg capsule Ref: 0 Rx: furosemide 20 mg tablet Ref: 0 Rx: gabapentin 600 mg tablet Ref: 0 Rx: HYDROcodone 7.5 mg-acetaminophen 325 mg tablet Ref: 0 Rx: potassium chloride ER 10 mEq capsule,extended release Ref: 0 Rx: tiZANidine 4 mg capsule Ref: 0 PHYSICAL EXAMINATION: General:Awake, alert, appropriate for age, in no acute distress. HEENT:No unusual neck masses around region of lateral neck triangle, thyroid, supraclavicular groove Extremities:Skin warm and dry without acute lesions, coloration, temperature, skin intact, no tenderness or erythema Integument: Hairy patches:ABSENT Dorsal skin dimples:ABSENT Cafe au lait spots:ABSENT Surgical incisions: Well healed (from previous surgeries) Palpation: Please see Pain drawing on Intake sheet for further detail. Midline spinal tenderness: No E6 Cervical Tenderness: No E6 Paralumbar tenderness: YES E6 Parathoracic tenderness: No E6 Buttocks tenderness: YES E6 Sacroiliac Tenderness:No POSTURAL and MUSCULO-SKELETAL EVALUATION: Coronal Balance: NEUTRAL Recumbent testing: Patient isable to lay flat on back Sagittal Balance: NEUTRAL Shoulder Profile: LEVEL Pelvic Girdle: LEVEL Neck ROM: RESTRICTED Lumbar ROM: RESTRICTED Shoulder ROM: Symmetrical Hip ROM: Symmetrical Knee ROM: Symmetrical Hands: Normal appearance, symmetrical Feet: Normal appearance, Symmetrical VASCULAR STATUS : LEFTRIGHT Wrist Pulses INTACT INTACT Pedal Pulses (Dors. pedis & post.tibialis) INTACT INTACT Color NORMAL NORMAL Edema Absent Absent NEUROLOGIC EXAMINATION: Mental Status:Awake and alert, fully oriented, with normal attention, concentration and memory, and fluent, appropriate speech. Cranial Nerves: I: Olfactory not tested. II: Visual acuity normal, no visual field deficit noted with confrontation. III,IV: Normal pupillary reflexes & intact extraocular movements without nystagmus. V,: Intact symmetrical facial sensation. VII: Intact symmetrical facial motor movement VIII: Hearing intact. IX,X: Intact gag, swallow, & normal voice. XI: Sternocleidomastoid, trapezius function intact. XII: Tongue midline with normal movements. L'hermitte's Sign: Negative / absent Spurling'Sign: Absent bilaterally. Cubital percussion test: Absent bilaterally. Gee-Tinel sign - Carpal region: Absent bilaterally. Straight Leg Raising: Absent bilaterally. Crossed straight leg raise: negative MOTOR EXAM (0-5/5, N/T Muscle appearance:Symmetrical, without signs of atrophy or dystrophy UPPER EXTREMITY RIGHT LEFT Shoulder Abduction 5/5 5/5 Biceps 5/5 5/5 Triceps 5/5 5/5 Wrist Extension 5/5 5/5 Hand Intrinsic 5/5 5/5 Staff Physician +4/5 5/5 Hand and finger dexterity intact bilaterally? yes Disdiadochokinesis examination negative bilaterally? yes LOWER EXTREMITY RIGHT LEFT Hip Flexion 5/5 5/5 Knee Extension 5/5 5/5 Knee Flexion 5/5 5/5 Dorsiflexion 5/5 5/5 Plantarflexion 5/5 5/5 EHL 5/5 5/5 FHL 5/5 5/5 Toe heel walk / heel-toe walk intact while maintaining satisfactory balance? yes Squatting/straightening w/o assistance to a min of 60 degree knee flexion? yes Single leg stance:intact Trendelenburg sign negative bilaterally REFLEXES(0-4/2, NT)Upper ExtremityLower Extremity Right 2 2 Left 2 2 Pathological Reflexes RIGHTLEFT Gee's Present Present Clonus Absent Absent Babinski Absent Absent Sensory system (0-4, N/T) Test type RU BENNIE RL LL Joint-Position 2 2 2 2 Vibration 2 2 2 2 Pain & LT sense 2 2 2 2 Dermatomal Deficit: C6 C5 None None Gait and Functional Evaluation: Ambulatory aids:Independent Romberg's test: Intact bilaterally Steady Gait RADIOGRAPHIC STUDIES: [facility]2022 of CervicalSpine: IMages reviewed with pt. s/p multiple fusions anteriorly from C3-C7 Good fusion noted, no hardware present anterior neck any longer. Peek cages visible. C7-T1 Grade I spondylolisthesis noted with increased segmental kyphosis and deformity due to this slip Stenosis related to these findings Spondylosis C7-T1 OC and C1-2 stable No fracture No lesions MRI scancompleted [facility] from07/14/2022 of CervicalSpine: Images reviewed with pt. Post surgical changes as above with C3-7 anterior fusion noted. Reasonable fusion. C6-7 may be partial fusion. C7-T1 grade I spondylolisthesis as well as T1-T2 grade I spondylolisthesis with resulting segemental kyphosis, deformity and stenosis related to this Central stenosis is moderate, foraminal stenosis is moderate at these levels and more severe at T1-2. No fracture No lesions C1-2 and OC joints stable. IMPRESSION: It was my pleasure to have seen and examined Melia. I reviewed the patient's clinical syndrome, physical findings, and imaging studies during the appointment today. It is my impression that the patient has a diagnosis of. 1. S/P C3-7 ACDF 2. Grade I spondylolisthesis of C7 on T1 3. C7-T1 stenosis 4. Neck pain 5. Right upper extremity radiculopathy I outlined the natural course history without intervention and various interventional options. PLAN: Based on my findings I suggest the following course of action: -I discussed treatment options with the patient, including operative and non- operative options, and they have elected to proceed with the following surgical procedure: C2-T2 posterior decompression and fusion The indications, risks, benefits, and alternatives to surgery were discussed with the patient and family at length. Specifically (but not limited to) the risks of infection, stiffness, recurrence of symptoms, need for revision surgery, local numbness, neurovascular injury, and blood clots were discussed. The patient's questions were answered. - Ambulate daily. - Take medications as directed. - Ice and rest for pain and swelling control. Spine Surgery Risk Review Ms. Messer is presenting for evaluation of neck pain. It was my pleasure to have seen and examined Ms. Messer. In our visit today we have had a chance to go over subjective complaints, physical examination findings and treatments including the natural course history without intervention and various interventional options. The patients imaging demonstrates: CT scancompleted at [facility] from07/09/2022 of CervicalSpine: IMages reviewed with pt. s/p multiple fusions anteriorly from C3-C7 Good fusion noted, no hardware present anterior neck any longer. Peek cages visible. C7-T1 Grade I spondylolisthesis noted with increased segmental kyphosis and deformity due to this slip Stenosis related to these findings Spondylosis C7-T1 OC and C1-2 stable No fracture No lesions [facility] C[facility]: Images reviewed with pt. Post surgical changes as above with C3-7 anterior fusion noted. Reasonable fusion. C6-7 may be partial fusion. C7-T1 grade I spondylolisthesis as well as T1-T2 grade I spondylolisthesis with resulting segemental kyphosis, deformity and stenosis related to this Central stenosis is moderate, foraminal stenosis is moderate at these levels and more severe at T1-2. No fracture No lesions C1-2 and OC joints stable. On physical exam, Ms. Messer demonstrates: The patient reports experiencing continued diffuse neck pain that radiates down into the right upper extremity. The patient notes continued radicular symptoms throughout the right upper extremity, which she feels has gradually worsened since she was last evaluated in office on 07/03/2022. The patient also reports experiencing continued headaches which are becoming more frequent. Overall, the patient has seen a progressive increase in her symptoms since their initial onset. The patient states that her current symptoms are exacerbated by all activity. The patient has been experiencing severe sleep disturbances as well due to her ongoing symptoms. The patient states that her symptoms have become debilitating and are significantly affecting her overall quality of life. The patient states that her symptoms prohibit her from completing any of her regular activities of daily living. I have explained to the patient that as their condition progresses it will cause further neurological deficits and eventual paralysis. Based on the patients imaging, physical exam, and the rapid progression and disabling nature of their symptoms, at this time I recommend surgery in the form of a: C2-T2 posterior decompression and fusion. I discussed the risk and benefits of this procedure at length with Ms. Messer. The patient agreed to considered pursuing the procedure abovementioned. Prior to surgery, she should follow up with her PCP for clearance. Questions were invited and answered, and the patient wishes to proceed as outlined below. Currently, I am recommendin.C2-T2 posterior decompression and fusion 2.Follow up with PCP for surgical clearance 3.Review of surgical risks and benefits as well as an educational packet on the proposed surgical procedure. Risks: All surgical procedures come with inherent risks, including those related to positioning, anesthesia, intraoperative findings, and postoperative complications. It is important to understand that surgery does not come with any guarantee of a successful outcome as complications and adverse events are always possible. The patient was given a handout in office today discussing the surgical procedure and risks associated with the intervention, both of which were discussed with the patient. These risks include but are not limited to the following: * Experiencing same, different or even worse symptoms in back, neck, arms, or legs compared to before surgery. Requiring further surgery or other forms of treatment presently or at some time in the future at same or other levels of the intended spine surgery. On an extreme but fortunately relatively rare basis severe complication such as blindness, stroke, heart attack, temporary and/or permanent nerve injury, paralysis, coma, or may occur, sometimes without known explanation. Surgical complications may include but are not limited to risk of infection, fluid accumulation in the surgical dissection site, including a seroma or hematoma, that requires additional surgery, wound drainage, bleeding, new numbness or weakness, vision changes/loss, spinal fluid leakage, non-healing and/or infected incision, headaches, difficulty or inability to swallow, hoarseness, hemopneumothorax, pneumothorax, impotence, retrograde ejaculation, vaginal dryness; injury to nerves, spinal cord, blood vessels, lymphatics or other vital organs (i.e., bowel injury, injury to the great vessels); heterotopic bone formation; complications related to the hardware such as screws, rods, cages including misplaced hardware, device failure, instrumentation at the wrong spine level, hardware fracture/breakage, or hardware loosening; vertebral failure of the spinal column above or below the newly placed hardware; retained surgical instrumentations or devices and the need for further surgery. * Medical risks of the planned spine surgery include but are not limited to generalized Infections to the whole body or local areas outside of the surgical site (sepsis), heart attack, bleeding, anaphylaxis, meningitis, seizure, epilepsy, hearing loss, burn alonzo, laceration of the head or other areas of the body, bruising, hypersensitivity of the skin, bladder over distension; allergic reaction; shoulder injury related to positioning; fat, blood and air clots to other areas of the body like heart, lungs, brain; fail ure of internal organs such as lungs, kidneys, liver and excessive bleeding. If blood transfusions are necessary, note that transfusions may cause intolerance reactions such as anaphylaxis or other complex reactions. Despite best efforts, the results of spine surgery might not heal in terms of bone, soft tissues such as skin, fascia, ligaments, and joints. Additionally, in order to achieve best possible results, spine surgery may be carried out beyond the initially planned levels and involve decompression, fusion including insertion of hardware at levels other than the original intended area of surgical interest change some portions of the procedure in order to ensure the best possible outcomes. With spine surgery and spinal fusion, there are different off label uses of instrumentation (devices, implants and hardware) as well as biological substances (bone morphogenic proteins, demineralized bone matrix) as well as using extra bone from allograft sources (i.e. cadaver bone) or autograft (iliac crest bone, ribs, or the spine itself). The patient has been given information about these practices and their inherent risks and benefits. [facility] is an educational center that serves as a training facility for neurosurgical and orthopedic [employer] TECHNICIAN and Nursing students. Physician assistants are medically trained surgical providers who function in the outpatient, inpatient, and operating room setting under the direct supervision of the attending surgeon. [facility] has multiple operating rooms with single and overlapping rooms running daily. They currently function under the required guidelines as produced by the [facility] Finance Committee with regards to the overlapping rooms and will continue to comply with changes to this policy as they occur. The requirements include and are complied with as follows: (1) the critical portions of the overlapping rooms will not occur at the same time, (2) the attending physician will be physically present during the critical portions of the procedure and immediately available during the entire case, and (3) a back-up attending is designated should the primary attending not be immediately available. The patient has had a chance to review all the listed information, has been given print outs detailing this information, and has had all his/her questions answered to their satisfaction. It was my pleasure to have seen and examined Ms. Messer. In our visit today we have had a chance to go over my understanding of our patient's current condition, the natural course history without intervention and various in terventional options. Questions were invited and answered, and the patient wishes to proceed as outlined above. I have seen and examined the patient for 25 minutes and we have spent more than 50% of the time in repeat and detailed counseling about the patient's condition, its natural course history with out and as much as can be predicted with surgery and re-review of various surgical treatment options. In conclusion, Ms. Messer requested we proceed with the above suggested surgery and are willing to accept risks and limitations of the suggested surgery as nature of the disease process and our best attempts at treatment for the condition. Thank you again for allowing us to be part of your patient's care. Please don't hesitate to contact me if you have any further questions. Follow- up: 2 weeeks PO Patient Education: (Informational booklet, instructions, etc) given at today's appointment: Yes .ED:Patient Education: Y Plan at next visit: X-ray Medications Reviewed: YES In our visit today Ms. Messer and I have had a chance to go over my understanding of the patient's current condition, the natural course history without intervention and various interventional options. Questions were invited and answered, and the patient wishes to proceed as outlined above. I will be sure to keep you updated afterMs. Messer returns here for further follow-up. Thank you again for your referral. Please do not hesitate to contact me if you have any further questions. Signed and authenticated by: Joseph [facility]im[facility] Spine Surgery [address] [place] [id number] This message is confidential, intended only for the named recipient(s) and may contain information that is privileged or exempt from disclosure under applicable law. If you are not the intended recipient(s), you are notified that the dissemination, distribution or copying of this information is strictly prohibited. If you received this message in error, please notify the sender then delete this message. # SIGNED BY Joseph Sauer (CAROLYN)09/26/2022 05:27PM # REVISED BY Joseph Sauer (GOO)09/26/2022 05:29PM Past Medical History Past Medical History: Asthma, GERD/Reflux, Hypertension Additional Past Medical History / Comment(s): WATER RETENTION, MIGRAINES History of Any Multi-Drug Resistant Organisms: C-DIFF Date of last positivie culture/infection: 02/09/2017 MDRO Source:: STOOL Past Surgical History: Back Surgery, Cholecystectomy, Hysterectomy Additional Past Surgical History / Comment(s): 3 cervcial fusion C2-C7 . 3 LUMBAR back surgrey, CSF leak BILATERAL WRIST Past Anesthesia/Blood Transfusion Reactions: Postoperative Nausea & Vomiting (PONV) Past Psychological History: No Psychological Hx Reported Smoking Status: Never smoker Past Alcohol Use History: None Reported Past Drug Use History: None Reported - Past Family History Mother Family Medical History: Congestive Heart Failure (CHF), Diabetes Mellitus, Hypertension Additional Family Medical History / Comment(s): pulmonary hypertension, needed oxygen Father Family Medical History: Congestive Heart Failure (CHF), COPD, Diabetes Mellitus, Hypertension Additional Family Medical History / Comment(s): obsese, edema, Medications and Allergies Home Medications Medication Instructions Recorded Confirmed Type Albuterol Sulfate [Proair Hfa] 2 puff INHALATION DAILY PRN 04/30/18 09/22/22 History Butalb/APAP/Caff 50-325-40Mg 1 tab PO DAILY PRN 04/30/18 09/22/22 History [Fioricet 50-325-40] Calcium Carbonate [Tums] 500 mg PO DIRECTED PRN 04/30/18 09/22/22 History Furosemide [Lasix] 20 mg PO QAM 04/30/18 09/22/22 History Gabapentin 600 mg PO TID 04/30/18 09/22/22 History HYDROcodone/APAP 10-325MG [[place] 1 tab PO HS 04/30/18 09/22/22 History 10-325] Nortriptyline [Pamelor] 50 mg PO HS 04/30/18 09/22/22 History Topiramate [Topamax] 200 mg PO HS 04/30/18 09/22/22 History tiZANidine [Zanaflex] 4 mg PO TID 04/30/18 09/22/22 History Cetirizine HCl 10 mg PO QAM 09/22/22 09/22/22 History Montelukast [Singulair] 10 mg PO HS 09/22/22 09/22/22 History Potassium Chloride 10 meq PO BID 09/22/22 09/22/22 History atenoloL 25 mg PO QAM 09/22/22 09/22/22 History Allergies Allergy/AdvReac Type Severity Reaction Status Date / Time adhesive AdvReac Rash/Hives Verified 09/22/22 16:11 Physical Examination Osteopathic Statement: *. No significant issues noted on an osteopathic structural exam other than those noted in the History and Physical/Consult.
[~2022-09-30 07:30] MED LIST: ACETAMINOPHEN TAB 500 MG TAB PO PRN; GABAPENTIN 300 MG CAP PO PRN; ONDANSETRON 4 MG/2 ML VIAL IVP PRN; TRANEXAMIC 1,000 MG/100ML-NACL 1,000 MG in SALINE 1 100ML.BAG IVPB PRN
[2022-09-30] MEDS ORDERED: ONDANSETRON 4 MG/2 ML VIAL IVP ONE (09:12)
[2022-09-30] MEDS ORDERED: DEXAMETHASONE SOD PHOSPHATE 4 MG/ML 1 ML VIAL IV ONE (09:12)
[2022-09-30] MEDS: LACTATED RINGERS 1,000 ML IV SCH (09:55)
[2022-09-30] MEDS ORDERED: ROCURONIUM 10 MG/ML (5 ML VIAL) IV ONE (11:03)
[2022-09-30] MEDS ORDERED: LIDOCAINE 2% INJ 20 MG/ML (2 ML VIAL) ONE (11:03)
[2022-09-30] MEDS ORDERED: PROPOFOL 10 MG/ML 20 ML VIAL IV ONE (11:03)
[2022-09-30] MEDS ORDERED: MIDAZOLAM 2 MG/2 ML VIAL ONE (11:03)
[2022-09-30] MEDS ORDERED: TRANEXAMIC 1,000 MG/100ML-NACL PREMIX BAG ONE (11:03)
[2022-09-30] MEDS ORDERED: NEOSTIGMINE 1 MG/ML 10 ML VIAL ONE (11:03)
[2022-09-30] MEDS ORDERED: ePHEDrine 50 MG/ML 1 ML VIAL ONE (11:03)
[2022-09-30] MEDS ORDERED: SUCCINYLCHOLINE CHLORIDE 200 MG/10 ML VIAL IV ONE (11:03)
[2022-09-30] MEDS ORDERED: KETAMINE 10 MG/ML 20 ML VIAL ONE (11:03)
[2022-09-30] MEDS ORDERED: PHENYLEPHRINE-0.9% NACL SYG 1,000 MCG/10 ML SYRINGE ONE (11:03)
[2022-09-30] MEDS ORDERED: fentaNYL (PF) 50 MCG/ML 2 ML AMP ONE (11:03)
[2022-09-30] MEDS ORDERED: GLYCOPYRROLATE 0.2 MG/ML 2 ML VIAL ONE (11:03)
[2022-09-30] MEDS ORDERED: GELATIN SPONGE,ABSORB (LARGE) 1 EACH SPONGE TOPICAL ONE (12:10)
[2022-09-30] MEDS ORDERED: THROMBIN (BOVINE) 5,000 UNIT VIAL TOPICAL ONE (12:11)
[2022-09-30] MEDS ORDERED: GENTAMICIN 80 MG in SODIUM CHLORIDE 0.9% IRRIGATIO 3,000 ML IRRIGATION ONE (12:49)
[2022-09-30] MEDS ORDERED: ceFAZolin 3,000 MG in SODIUM CHLORIDE 0.9% IRRIGATIO 3,000 ML IRRIGATION ONE (12:50)
[2022-09-30] MEDS ORDERED: VANCOMYCIN 1,000 MG VIAL MISCELLANE ONE (13:45)
--- NOTE | 2022-09-30 14:21 | XR ---
Intraoperative/procedural fluoroscopic services were provided for posterior cervical fusion. Total fl uoroscopy time is 47.5 seconds with a total of 12 submitted images to PACS. Total DAP 1.0292 Gycm2. Please see the operative note for further details.
--- NOTE | 2022-09-30 14:31 | P.OP ---
Date of Procedure: 09/30/22 Preoperative Diagnosis: 1. C7-T1 SPONDYLOLISTHESIS WITH STENOSIS 2. S/P C3-7 ACDF WITH ASD C2-3 AND C7-T1 3. UE RADICULOPATHY AND PARESTHESIAS 4. NECK PAIN, SEVERE Postoperative Diagnosis: 1. C7-T1 SPONDYLOLISTHESIS WITH STENOSIS 2. S/P C3-7 ACDF WITH ASD C2-3 AND C7-T1 3. UE RADICULOPATHY AND PARESTHESIAS 4. NECK PAIN, SEVERE Procedure(s) Performed: 1. C2-T2 POSTERIOLATERAL FUSION (84137, [id number]) 2. C2-T2 SEGMENTAL INSTRUMENTATION (58673) 3. C2-T1 BILATERAL LAMINECTOMY, PARTIAL MEDIAL FACETECTOMY AND FORAMINOTOMY (55663, [id number]) USE OF IONM Implants: -ABRAN POSTERIOR CERVICAL SYSTEM -MAGNATOS Anesthesia: GETA Surgeon: Joseph Sauer Vacation Sales Advisor #1: Carlton Muir (NOEMI Pavon Was present and assisted with all aspects of the case from positioning to dressing placement) Estimated Blood Loss (ml): 150 IV fluids (ml): 1,100 Urine output (ml): 300 Condition: stable Disposition: PACU Indications for Procedure: Ms. Messer is presenting for evaluation of neck pain. It was my pleasure to have seen and examined Ms. Messer. In our visit today we have had a chance to go over subjective complaints, physical examination findings and treatments including the natural course history without intervention and various interventional options. The patients imaging demonstrates: [facility]07[facility]2022 of CervicalSpine: IMages reviewed with pt. s/p multiple fusions anteriorly from C3-C7 Good fusion noted, no hardware present anterior neck any longer. Peek cages visible. C7-T1 Grade I spondylolisthesis noted with increased segmental kyphosis and deformity due to this slip Stenosis related to these findings Spondylosis C7-T1 OC and C1-2 stable No fracture No lesions MRI scancompleted [facility] from07/14/2022 of CervicalSpine: Images reviewed with pt. Post surgical changes as above with C3-7 anterior fusion noted. Reasonable fusion. C6-7 may be partial fusion. C7-T1 grade I spondylolisthesis as well as T1-T2 grade I spondylolisthesis with resulting segemental kyphosis, deformity and stenosis related to this Central stenosis is moderate, foraminal stenosis is moderate at these levels and more severe at T1-2. No fracture No lesions C1-2 and OC joints stable. On physical exam, Ms. Messer demonstrates: The patient reports experiencing continued diffuse neck pain that radiates down into the right upper extremity. The patient notes continued radicular symptoms throughout the right upper extremity, which she feels has gradually worsened since she was last evaluated in office on 07/03/2022. The patient also reports experiencing continued headaches which are becoming more frequent. Overall, the patient has seen a progressive increase in her symptoms since their initial onset. The patient states that her current symptoms are exacerbated by all activity. The patient has been experiencing severe sleep disturbances as well due to her ongoing symptoms. The patient states that her symptoms have become debilitating and are significantly affecting her overall quality of life. The patient states that her symptoms prohibit her from completing any of her regular activities of daily living. I have explained to the patient that as their condition progresses it will cause further neurological deficits and eventual paralysis. Based on the patients imaging, physical exam, and the rapid progression and disabling nature of their symptoms, at this time I recommend surgery in the form of a: C2-T2 posterior decompression and fusion. I discussed the risk and benefits of this procedure at length with Ms. Messer. The patient agreed to considered pursuing the procedure abovementioned. Prior to surgery, she should follow up with her PCP for clearance. Questions were invited and answered, and the patient wishes to proceed as outlined below. Currently, I am recommendin.C2-T2 posterior decompression and fusion Description of Procedure: C2-T2 DECOMPRESSION AND FUSION The patient was seen and examined in the preoperative area. All preoperative protocols were followed. Informed consent was obtained risks and benefits of the procedure were discussed at length. Risks including bleeding infection damage to the surrounding tissue and risk of reoperation were discussed with the patient. Risk of anesthesia up to and including was a discussed with the patient. These are outlined in the risk review. They were willing to accept these risks and all of the risks of surgery. The patient was given a weight- based dose of antibiotics in the form of 2 g Ancef. The patient was seen and evaluated by the anesthesia team who deemed them fit for surgery. The site was marked, the patient was willing to proceed with the procedure. The patient was transferred to the operative suite by the Department of anesthesia. They were then drifted off to sleep by the department anesthesia and GETA was performed. The patient tolerated this well. pre-positioning motors were obtained.Singh in place from the floor. Once confirmation of lines and ventilation [place] head clamp was placed on the patient and secured and the patient was transferred to a [prone Gerardo table very carefully] with the Vazquez hogshead stripper the head was secured and placed into an optimal position x- ray confirmed this position. Post-positioning motors remained stable. All bony prominences including wrists, elbows, axilla, chest, hips, and thighs, and feet were padded very well. Special attention was paid to the genitalia and these were padded accordingly. SCDs were placed on bilateral lower extremities and were connected. Arms were well padded and placed tucked at his side thumbs down. Shoulders were gently taped down to the table.. Once in position, again we confirmed good ventilation capabilities and that lines were running appropriately. The patient's posterior cervical spine was then exposed. 1010s were placed outlining the incision site. Standard alcohol was used to clean the incision site and allowed to dry. C-arm was used to biomark the patient and confirm level for incision which was marked with a skin marker. Operative briefing was performed with all teams and everyone in agreement to proceed. The patient was then prepped and draped in a normal sterile fashion. Timeout was then performed and all parties were in agreement with the procedure to be performed. Midline skin incision made over the previously biomarked area and dissection taken down midline to the SP of C2-T1. Subperiosteal dissection taken out over the lamina and lateral masses of C2-C7 and TVP of T1. Once exposure complete, wound was irrigated and c arm brought in for imaging. A penfield 4 was used to bluntly dissect the medial border of C2 pedicle and placed for guidance. C arm used and armani hole made for starting point. C2 pedicle was then drilled in 2mm increments to 20 mm using a ball tip feeler in between each drill session to make sure within the 4 hand with a good bottom. once this was accomplished a screw was selected and placed under lateral fluoroscopic guidance. Screw had good purchase. This was then repeated on the contralateral side. AP confirmed good placement of both screws. We then proceeded to the T1 and T2 screws bilaterally armani was used to remove the facet joint of C7 and to create a starting point for T1. Pedicle finder was then passed into T1 and imaging taken to confirm placement this was then removed and a tap placed ball-tipped probe was then placed and 4 hand of pedicle fell with good bottom. Screw was then measured and placed into T1. This was done again with the T2 screw as well checking images after each step and confirming good placement. This is repeated on the contralateral side. The wound was then irrigated. Lateral mass screws were then drilled to 14 mm and placed at each level. Each had a good bite. Rods were then sized and selected and cut to length. They were bent accordingly and lordosis. There is secured into C2 bilaterally and then sequentially her diet reduced into T1 and T2. All set screws were placed and were then final tightened and the position. Laminectomy was then performed using Ronjair followed by armani bilateral laminotomies and laminectomy was performed using high-speed bur Kerrison Ronjair and up-biting curette and medial facetectomy. Motors were run before and after decompression and they remain stable. Good pulsations of the cord were noted after decompression. The wound was then copiously irrigated with 3 L of Ancef irrigation followed by 3 L of gentamicin irrigation followed by 3 L of normal sterile saline. Facet joints were drilled at each level to allow for fusion Surgicel was placed over the dura. MagnetOs were placed in the posterior lateral gutters along with Luba and DBM. This was impacted into position for fusion. 2 g of powdered bank was not placed deep within the wound and a deep drain was placed. A cross- link was placed and final tightened. We then proceeded with layered closure first in the deep fascia with #1 PDS then in the middle fascia with 0 Vicryl superficial fascia was closed with 2-0 Vicryl and skin closed with skin isai. The wound edges approximated very well. The wound was then cleaned and dressed sterilely with an operative foam dressing 4 x 4 and Tegaderm. The drain had good suction. The patient was placed in a hard cervical collar. The patient was transferred back to their hospital bed atraumatically. Vazquez head clamp was removed and pin sites were clear. [Drain continued to hold suction and were in good position]. Patient was then awakened and extubated by the department of anesthesia having tolerated the procedure very well with no complications. They were transferred to the postoperative care unit in stable condition.
[2022-09-30] MEDS ORDERED: CYCLOBENZAPRINE 10 MG TAB PO PRN (14:32)
[2022-09-30] MEDS ORDERED: MAGNESIUM HYDROXIDE 2,400 MG/30 ML CUP PO PRN (14:32)
[2022-09-30] MEDS ORDERED: SENNOSIDES-DOCUSATE SODIUM 1 EACH TAB PO PRN (14:32)
[2022-09-30] MEDS ORDERED: ONDANSETRON 4 MG/2 ML VIAL IVP PRN (14:32)
[2022-09-30] MEDS ORDERED: HYDROmorphone 0.5 MG/0.5 ML SYRINGE IVP PRN (14:32)
[2022-09-30] MEDS: HYDROmorphone 0.5 MG/0.5 ML SYRINGE IVP PRN ×3 (14:42→15:00)
[2022-09-30] MEDS: HYDROcodone/APAP 10-325MG 1 EACH TAB PO PRN (17:06)
[2022-09-30] MEDS: GABAPENTIN 300 MG CAP PO SCH ×2 (17:07→23:33)
[2022-09-30] MEDS: 0.9% NACL WITH KCL 20 MEQ/L 1,000 ML IV SCH (17:08)
[2022-09-30] MEDS ORDERED: ALBUTEROL NEBULIZED 2.5 MG/3 ML INHALATION PRN (17:15)
[2022-09-30] MEDS ORDERED: CALCIUM CARBONATE 500 MG CHEWABLE PO PRN (17:15)
--- NOTE | 2022-09-30 17:17 | P.CONS ---
History of Present Illness - Reason for Consult Consult date: 09/30/22 - Chief Complaint medical management - History of Present Illness 56-year-old woman with a medical history of hypertension, migraine, chronic pain presented for C3 to 7 ACDF. Medicine consulted for medical management. Patient's only complaint is soreness in the neck, otherwise has no complaints at this time. Patient was still groggy following the procedure/anesthesia and was not able to provide significant history of participate well with review of systems. Today, patient is afebrile, 98/59, heart rate 80, 96% on 3 L of nasal cannula. No labs or images to review. All Systems reviewed and pertinent positives and negatives noted in HPI, all other symptoms are negative Gen: in no apparent distress, resting comfortably in bed Eyes: PERRL, no scleral injection or icterus HENT: normocephalic, atraumatic, good hearing acuity, moist mucous membranes Neck: no tracheal deviation, full range of motion Resp: good air exchange, breathing comfortably with no accessory muscle use, no tactile fremitus CVS: good distal perfusion x 4, no pitting edema GI: soft, NTTP, ND, no hepatosplenomegaly : no suprapubic tenderness, no CVAT, villaseñor catheter not present MSK: no clubbing, no cyanosis, no noted contractures of extremities Skin: no noted rashes, petechiae; temperature of skin is appropriate Neuro: moving all extremities without signs of weakness, CN II-XII intact Psych: cooperative, euthymic mood, insight and judgment intact Assessment: Hypertension Migraine Chronic pain Plan: Vital signs reviewed as above Home medications reviewed and reconciled: Albuterol when necessary, gabapentin, nortriptyline, Topamax resumed Patient is full code Past Medical History Past Medical History: Asthma, GERD/Reflux, Hypertension Additional Past Medical History / Comment(s): WATER RETENTION, MIGRAINES History of Any Multi-Drug Resistant Organisms: C-DIFF Year Discovered:: 02/09/2017 MDRO Source:: STOOL Past Surgical History: Back Surgery, Cholecystectomy, Hysterectomy Additional Past Surgical History / Comment(s): 3 cervcial fusion C2-C7 . 3 LUMBAR back surgrey, CSF leak BILATERAL WRIST Past Anesthesia/Blood Transfusion Reactions: Postoperative Nausea & Vomiting (PO NV) Past Psychological History: No Psychological Hx Reported Smoking Status: Never smoker Past Alcohol Use History: None Reported Past Drug Use History: None Reported - Past Family History Mother Family Medical History: Congestive Heart Failure (CHF), Diabetes Mellitus, Hypertension Additional Family Medical History / Comment(s): pulmonary hypertension, needed oxygen Father Family Medical History: Congestive Heart Failure (CHF), COPD, Diabetes Mellitus, Hypertension Additional Family Medical History / Comment(s): obsese, edema, Medications and Allergies Home Medications Medication Instructions Recorded Confirmed Type Albuterol Sulfate [Proair Hfa] 2 puff INHALATION DAILY PRN 04/30/18 09/30/22 History Butalb/APAP/Caff 50-325-40Mg 1 tab PO DAILY PRN 04/30/18 09/30/22 History [Fioricet 50-325-40] Calcium Carbonate [Tums] 500 mg PO DIRECTED PRN 04/30/18 09/22/22 History Furosemide [Lasix] 20 mg PO QAM 04/30/18 09/22/22 History Gabapentin 600 mg PO TID 04/30/18 09/22/22 History HYDROcodone/APAP 10-325MG [[place] 1 tab PO HS 04/30/18 09/22/22 History 10-325] Nortriptyline [Pamelor] 50 mg PO HS 04/30/18 09/22/22 History Topiramate [Topamax] 200 mg PO HS 04/30/18 09/22/22 History tiZANidine [Zanaflex] 4 mg PO TID 04/30/18 09/22/22 History Cetirizine HCl 10 mg PO QAM 09/22/22 09/22/22 History Montelukast [Singulair] 10 mg PO HS 09/22/22 09/22/22 History Potassium Chloride 10 meq PO BID 09/22/22 09/22/22 History atenoloL 25 mg PO QAM 09/22/22 09/22/22 History Allergies Allergy/AdvReac Type Severity Reaction Status Date / Time adhesive AdvReac Rash/Hives Verified 09/22/22 16:11 Physical Exam Osteopathic Statement: *. No significant issues noted on an osteopathic structural exam other than those noted in the History and Physical/Consult. Vitals: Vital Signs Temp Pulse Pulse Resp BP Pulse Ox 09/30/22 15:30 75 18 116/62 96 08/22/23 15:15 77 18 117/62 95 09/30/22 15:01 77 18 124/67 95 09/30/22 14:45 75 18 98/68 97 09/30/22 14:30 97.0 F L 80 18 98/59 96 09/30/22 09:26 97.4 F L 71 16 135/77 100 Intake and Output 09/30/22 09/30/22 09/30/22 06:59 14:59 22:59 Intake Total 1752 Output Total 350 100 Balance 1402 -100 Intake: IV 1752 Output: Urine 200 100 Estimated Blood Loss 150 Other: Weight 88.9 kg
[2022-09-30] MEDS: HYDROmorphone 1 MG/ML 1 ML SYRINGE IVP PRN ×2 (19:34→22:41)
[2022-09-30] MEDS: ACETAMINOPHEN TAB 325 MG TAB PO SCH ×2 (19:59→23:33)
[2022-09-30] MEDS ORDERED: NON FORMULARY DRUG (Gabapentin [Gabapentin] 600 MG Tablet) PO SCH (22:00)
[2022-09-30] MEDS: TOPIRAMATE 100 MG TAB PO SCH (22:40)
[2022-09-30] MEDS: MONTELUKAST 10 MG TAB PO SCH (22:40)
[2022-09-30] MEDS: NORTRIPTYLINE 25 MG CAP PO SCH (22:41)
[2022-09-30] MEDS: tiZANidine 4 MG TAB PO SCH (23:34)
[2022-10-01] MEDS: HYDROmorphone 1 MG/ML 1 ML SYRINGE IVP PRN (03:17)
[2022-10-01] MEDS: HYDROcodone/APAP 10-325MG 1 EACH TAB PO PRN (05:40)
[2022-10-01] MEDS: ACETAMINOPHEN TAB 325 MG TAB PO SCH ×3 (06:23→18:36)
[2022-10-01] MEDS: GABAPENTIN 300 MG CAP PO SCH ×3 (07:50→21:49)
[2022-10-01] MEDS: atenoloL 25 MG TAB PO SCH (07:51)
[2022-10-01] MEDS: FUROSEMIDE 20 MG TAB PO SCH (07:52)
[2022-10-01] MEDS: SENNOSIDES-DOCUSATE SODIUM 1 EACH TAB PO SCH (07:52)
--- NOTE | 2022-10-01 08:16 | CT ---
EXAMINATION TYPE: CT cervical spine wo con DATE OF EXAM: 09/30/2022 COMPARISON: Preoperative study 07/09/2022 HISTORY: s/p C2-T1 posterior cervical fusion/decompression CT DLP: 532.[address] of the cervical spine was performed with bone and soft tissue window settings submitted . Coronal and sagittal reconstruction is obtained. There is normal alignment and prevertebral soft tissues Noted are changes of cervical fusion extending from C3 through C7 with decompressive laminectomy note d. Pedicular screws are seen extending from C2 through T1. Postoperative alignment is near-anatomic. Postsurgical soft tissue changes are seen. Posterior surgical drain is in place. No unusual collectio n seen at this time. Upper pulmonary linear atelectasis seen. IMPRESSION: Postoperative changes as discussed.
[2022-10-01] MEDS: tiZANidine 4 MG TAB PO SCH ×3 (09:16→21:49)
[2022-10-01] MEDS: MORPHINE SULFATE 4 MG/ML SYRINGE IVP PRN ×4 (09:20→23:00)
--- NOTE | 2022-10-01 09:34 | P.PN ---
Subjective Progress Note Date: 10/01/22 Principal diagnosis: 1. S/P C3-7 ACDF 2. Grade I spondylolisthesis of C7 on T1 3. C7-T1 stenosis 4. Neck pain 5. Right upper extremity radiculopathy Patient seen and examined this morning. Patient is resting in bed. Spouse is at bedside. Patient reports moderate amount of pain in the posterior cervical region. She states she had nausea and vomiting with IV Dilaudid. Medications will be adjusted. Hard cervical collar has been repositioned. Surgical dressing is clean dry and intact, Hemovac is present with 0 ml output overnight. Patient has not been up since surgical procedure. Informed patient that physical therapy will be in to work with her today, patient verbalizes understanding. No acute events overnight. Objective - Vital Signs Vital signs: Vital Signs Temp 98.6 F 10/01/22 02:00 Pulse 98 10/01/22 02:00 Resp 16 10/01/22 02:00 BP 130/76 10/01/22 02:00 Pulse Ox 91 L 10/01/22 02:00 FiO2 Intake & Output 09/30/22 10/01/22 10/01/22 18:59 06:59 18:59 Intake Total 1752 Output Total 450 800 Balance 1302 -800 Weight 88.9 kg Intake: IV 1752 Output: Urine 300 800 Estimated Blood Loss 150 Other: Voiding Method Indwelling Catheter - Exam Physical Examination General: The patient is awake and alert, in no acute distress Skin: Skin is warm and dry with no obvious rashes or lesions. Surgical incision to the posterior cervical spine, dressing is clean dry and intact. Hemovac is present with 0 mL output overnight. Eye: Pupils are equal, round and reactive to light, extra-ocular movements are intact; there is normal conjunctiva bilaterally. Neck: The neck is supple, there is no tenderness and ROM intact. Cardiovascular: There is a regular rate and rhythm. No murmur, rub or gallop is appreciated. Respiratory: Lungs are clear to auscultation, respirations are non-labored, breath sounds are equal. Gastrointestinal: Soft, non-distended, non-tender abdomen. Back: There is no tenderness to palpation in the midline, paralumbar, parathoracic or buttocks region. There is no obvious deformity . Musculoskeletal: ROM limited secondary to pain and stiffness from surgical procedure. Muscle strength in all major muscle groups of bilateral upper extremities 4/5, bilateral lower extremities 5/5. Neurological: CN 2-12 intact. There are no obvious motor or sensory deficits. Movement and coordination equal and intact. Sensory exam to light touch intact C5-T1 and intact from L2-S1. Reflexes 2/4 in bilateral upper and lower extremities. Negative Hoffmans, babinski, and clonus signs. Psychiatric: Cooperative, appropriate mood & affect, normal judgment. Assessment and Plan Assessment: Postop day 1: C2-T2 decompression and fusion 1. S/P C3-7 ACDF 2. Grade I spondylolisthesis of C7 on T1 3. C7-T1 stenosis 4. Neck pain 5. Right upper extremity radiculopathy Plan: -Appreciate aws consultant and team management. -Activity: Ambulate QID, OOB all meals, up and about, limit lifting bending twisting to less than 5 lbs. Use walker or cane if needed for stability. -Daily PT/OT, increase ambulation strength and balance. -Hard cervical collar at all times -Pain control: Adequate at this time -Meds: reviewed -GI ppx: senna, Miralax -DC villaseñor when up and about, bedside commode if needed -DVT PPX: OK to restart Heparin tonight -Hygiene: Shower today. Maintain dressing clean and dry. -Drains: Maintain for now. Continue to record output every shift -Encourage IS 10x/hr -Dispo: Anticipate discharge home in the next 2448 hours with homecare *I reviewed and discussed this case with my attending Dr. Sauer, whom has reviewed this chart and films and is in agreement with assessment and plan of care as outlined above. I have personally seen and examined the patient, performed the documentation and the assessment and plan as written. Number of minutes spent on the visit: 20m.
--- NOTE | 2022-10-01 10:32 | P.PN ---
Subjective Progress Note Date: 10/01/22 Pt has more pain today after anesthesia wore off. Dilaudid made patient nauseous overnight. Adjustments made to her pain regimen as detailed in plan below. Gen: in no apparent distress, resting comfortably in bed Eyes: PERRL, no scleral injection or icterus HENT: normocephalic, atraumatic, good hearing acuity, moist mucous membranes Neck: no tracheal deviation, full range of motion Resp: good air exchange, breathing comfortably with no accessory muscle use, no tactile fremitus CVS: good distal perfusion x 4, no pitting edema GI: soft, NTTP, ND, no hepatosplenomegaly : no suprapubic tenderness, no CVAT, villaseñor catheter not present MSK: no clubbing, no cyanosis, no noted contractures of extremities Skin: no noted rashes, petechiae; temperature of skin is appropriate Neuro: moving all extremities without signs of weakness, CN II-XII intact Psych: cooperative, euthymic mood, insight and judgment intact Hospital Course: 56-year-old woman with a medical history of hypertension, migraine, chronic pain presented for C3 to 7 ACDF. Medicine consulted for medical management. Patient's only complaint is soreness in the neck, otherwise has no complaints at this time. Patient was still groggy following the procedure/anesthesia and was not able to provide significant history of participate well with review of systems. Upon initial evaluation, patient is afebrile, 98/59, heart rate 80, 96% on 3 L of nasal cannula. No labs or images to review. Assessment: Hypertension Migraine Chronic pain Plan: Today, patient is afebrile, 117/79, heart rate 97, 95% on 2 L nasal cannula. [facility] reviewed: Pain controlСВЕТЛАНА, PT/OT today with anticipated discharge in 24-48 hours Home medications reviewed and reconciled: Albuterol when necessary, gabapentin, nortriptyline, Topamax resumed Pain regimen: Gabapentin 600 mg 3 times a day, Flexeril 10 mg 3 times a day when necessary, Tylenol 650 mg every 6 hours when necessary, morphine 4 mg every 4 hours when necessary, nortriptyline 50 mg at bedtime, oxycodone 5 mg every 4 hours scheduled, oxycodone 10 mg every 6 hours when necessary, tizanidine 4 mg by mouth 3 times a day -Today I discontinued the Flexeril 3 times a day when necessary medication since the patient is already on tizanidine scheduled Patient is full code Objective - Vital Signs Vital signs: Vital Signs Temp 98.3 F 10/01/22 09:12 Pulse 97 10/01/22 09:12 Resp 15 10/01/22 07:35 BP 117/79 10/01/22 09:12 Pulse Ox 95 10/01/22 07:35 FiO2 Intake & Output 09/30/22 10/01/22 10/01/22 18:59 06:59 18:59 Intake Total 1752 Output Total 450 800 Balance 1302 -800 Weight 88.9 kg Intake: IV 1752 Output: Urine 300 800 Estimated Blood Loss 150 Other: Voiding Method Indwelling Catheter
[2022-10-01 10:59] LABS: HCT 42.4 % (37.2-46.3); HGB 13.7 d/dL (12.0-15.0); MCH 31.3 pg (27.0-32.0); MCHC 32.3 d/dL (32.0-37.0); MCV 96.8 FL (80.0-97.0); Mean Platelet Volume 9.7 FL (9.5-12.2); NRBC Per 100 WBC 0 X 10*3/uL (0.00-0.01); Platelet Count 292 X 10*3/uL (140-440); RBC 4.38 X 10*6/uL (4.10-5.20); RDW 11.9 % (11.5-14.5); WBC 16.06 X 10*3/uL (4.50-10.00)
[2022-10-01 11:06] LABS: BUN/Creat Ratio 15.62 Ratio (12.00-20.00); Blood Urea Nitrogen 12.5 mg/dL (9.0-27.0); Calcium 8.8 mg/dL (8.7-10.3); Carbon Dioxide 21.1 mmol/L (21.6-31.8); Chloride 104 mmol/L (96-109); Glucose 120 mg/dL (70-110); Potassium 4.1 mmol/L (3.5-5.5); Sodium 139 mmol/L (135-145)
[2022-10-01] MEDS: 0.9% NACL WITH KCL 20 MEQ/L 1,000 ML IV SCH (12:04)
[2022-10-01 12:15] LABS: Basophils # (A) 0.02 X 10*3/uL (0.00-0.10); Basophils % (A) 0.1 %; Eosinophils # (A) 0 X 10*3/uL (0.04-0.35); Eosinophils % (A) 0 %; Lymphocytes # (A) 0.67 X 10*3/uL (0.90-5.00); Lymphocytes % (A) 4.2 %; Monocytes # (A) 1.69 X 10*3/uL (0.20-1.00); Monocytes % (A) 10.5 %; Neutrophils # (A) 13.56 X 10*3/uL (1.80-7.70); Neutrophils % (A) 84.5 %; RBC Morphology Normal (Normal)
[2022-10-01] MEDS ORDERED: DEXAMETHASONE SOD PHOSPHATE 20 MG in DEXTROSE 5% IN WATER 50 ML IV STA ×2 (13:26)
[2022-10-01] MEDS: NORTRIPTYLINE 25 MG CAP PO SCH (20:16)
[2022-10-01] MEDS: TOPIRAMATE 100 MG TAB PO SCH (20:17)
[2022-10-01] MEDS: MONTELUKAST 10 MG TAB PO SCH (20:17)
[2022-10-02] MEDS: ACETAMINOPHEN TAB 325 MG TAB PO SCH ×2 (00:27→06:33)
[2022-10-02] MEDS: MORPHINE SULFATE 4 MG/ML SYRINGE IVP PRN ×2 (05:54→10:30)
[2022-10-02] MEDS: GABAPENTIN 300 MG CAP PO SCH ×3 (08:39→21:08)
[2022-10-02] MEDS: atenoloL 25 MG TAB PO SCH (08:39)
[2022-10-02] MEDS: SENNOSIDES-DOCUSATE SODIUM 1 EACH TAB PO SCH (08:39)
[2022-10-02] MEDS: FUROSEMIDE 20 MG TAB PO SCH (08:40)
[2022-10-02] MEDS: tiZANidine 4 MG TAB PO SCH (08:41)
[2022-10-02] MEDS ORDERED: tiZANidine 4 MG TAB PO SCH (09:00)
--- NOTE | 2022-10-02 09:30 | P.PN ---
Subjective Progress Note Date: 10/02/22 Principal diagnosis: 1. S/P C3-7 ACDF 2. Grade I spondylolisthesis of C7 on T1 3. C7-T1 stenosis 4. Neck pain 5. Right upper extremity radiculopathy Patient seen and examined this morning. Patient is currently resting in bed. Patient continues to report a moderate amount of pain in the posterior cervical region. Medications have been adjusted. Assisted patient to the bedside to assess surgical incision and drain. Surgical dressing is clean dry and intact, Hemovac is present with 0 ml output overnight. Patient states she has not been up since surgical procedure. Patient is to be up in chair for all meals. While sitting in chair place ice packs on shoulders. Continue to increase her daily activity, patient should be ambulatory 4 times a day. No acute events overnight. Objective - Vital Signs Vital signs: Vital Signs Temp 98.0 F 10/02/22 07:14 Pulse 87 10/02/22 08:00 Resp 14 10/02/22 08:00 BP 121/79 10/02/22 07:14 Pulse Ox 95 10/02/22 07:14 FiO2 Intake & Output 10/01/22 10/02/22 10/02/22 18:59 06:59 18:59 Intake Total 600 Output Total 1300 2300 Balance -700 -2300 Intake: IV 600 0.9% NaCl with KCl 20 Meq 600 /l 1,000 ml @ 50 mls/hr IV .Q20H [facility] Rx#: [id number] Output: Drainage 0 Right Neck 0 Urine 1300 2300 Uretheral (Singh) 1300 Other: Voiding Method Indwelling Catheter Indwelling Catheter - Exam Physical Examination General: The patient is awake and alert, in no acute distress Skin: Skin is warm and dry with no obvious rashes or lesions. Surgical incision to the posterior cervical spine, dressing is clean dry and intact. Hemovac is present with 0 mL output overnight. Eye: Pupils are equal, round and reactive to light, extra-ocular movements are intact; there is normal conjunctiva bilaterally. Neck: The neck is supple, there is no tenderness and ROM intact. Cardiovascular: There is a regular rate and rhythm. No murmur, rub or gallop is appreciated. Respiratory: Lungs are clear to auscultation, respirations are non-labored, breath sounds are equal. Gastrointestinal: Soft, non-distended, non-tender abdomen. Back: There is no tenderness to palpation in the midline, paralumbar, parathoracic or buttocks region. There is no obvious deformity . Musculoskeletal: ROM limited secondary to pain and stiffness from surgical procedure. Muscle strength in all major muscle groups of bilateral upper extrem ities 4/5, bilateral lower extremities 5/5. Neurological: CN 2-12 intact. There are no obvious motor or sensory deficits. Movement and coordination equal and intact. Sensory exam to light touch intact C5-T1 and intact from L2-S1. Reflexes 2/4 in bilateral upper and lower extremities. Negative Hoffmans, babinski, and clonus signs. Psychiatric: Cooperative, appropriate mood & affect, normal judgment. - Labs CBC & Chem 7: 10/01/22 05:35 10/01/22 05:35 Labs: Abnormal Lab Results - Last 24 Hours (Table) 10/01/22 10/01/22 Range/Units 05:35 05:35 WBC 16.06 H (4.50-10.00) X 10*3/uL Neutrophils # 13.56 H (1.80-7.70) X 10*3/uL Lymphocytes # 0.67 L (0.90-5.00) X 10*3/uL Monocytes # 1.69 H (0.20-1.00) X 10*3/uL Eosinophils # 0 L (0.04-0.35) X 10*3/uL Carbon Dioxide 21.1 L (21.6-31.8) mmol/L Anion Gap 13.90 H (4.00-12.00) mmol/L Glucose 120 H (70-110) mg/dL Assessment and Plan Assessment: Postop day 2: C2-T2 decompression and fusion 1. S/P C3-7 ACDF 2. Grade I spondylolisthesis of C7 on T1 3. C7-T1 stenosis 4. Neck pain 5. Right upper extremity radiculopathy Plan: -Appreciate enrollment consultant and team management. -Activity: Ambulate QID, OOB all meals, up and about, limit lifting bending twisting to less than 5 lbs. Use walker or cane if needed for stability. -Daily PT/OT, increase ambulation strength and balance. -Hard cervical collar at all times -Pain control: Adequate at this time -Meds: reviewed -GI ppx: senna, Miralax -DVT PPX: heparin -Hygiene: Shower today. Maintain dressing clean and dry. -Drains: Maintain for now. Drain will be pulled this afternoon. -Encourage IS 10x/hr -Dispo: Anticipate discharge home in the next 24hours with homecare *I reviewed and discussed this case with my attending Dr. Sauer, whom has reviewed this chart and films and is in agreement with assessment and plan of care as outlined above. I have personally seen and examined the patient, performed the documentation and the assessment and plan as written. Number of minutes spent on the visit: 20m.
[2022-10-02] MEDS: ACETAMINOPHEN IV (For NPO) 1,000 MG in EMPTY BAG 1 BAG IVPB SCH ×3 (10:30→21:07)
[2022-10-02] MEDS: 0.9% NACL WITH KCL 20 MEQ/L 1,000 ML IV SCH (10:31)
--- NOTE | 2022-10-02 11:45 | P.PN ---
Subjective Progress Note Date: 10/02/22 Pt doing better mobility caldera today and has some improvement in mood, however, does again report having significant neck pain. Gen: in no apparent distress, resting comfortably in bed Eyes: PERRL, no scleral injection or icterus HENT: normocephalic, atraumatic, good hearing acuity, moist mucous membranes Neck: no tracheal deviation, full range of motion Resp: good air exchange, breathing comfortably with no accessory muscle use, no tactile fremitus CVS: good distal perfusion x 4, no pitting edema GI: soft, NTTP, ND, no hepatosplenomegaly : no suprapubic tenderness, no CVAT, villaseñor catheter not present MSK: no clubbing, no cyanosis, no noted contractures of extremities Skin: no noted rashes, petechiae; temperature of skin is appropriate Neuro: moving all extremities without signs of weakness, CN II-XII intact Psych: cooperative, euthymic mood, insight and judgment intact Hospital Course: 56-year-old woman with a medical history of hypertension, migraine, chronic pain presented for C3 to 7 ACDF. Medicine consulted for medical management. Patient's only complaint is soreness in the neck, otherwise has no complaints at this time. Patient was still groggy following the procedure/anesthesia and was not able to provide significant history of participate well with review of systems. Upon initial evaluation, patient is afebrile, 98/59, heart rate 80, 96% on 3 L of nasal cannula. No labs or images to review. Assessment: Hypertension Migraine Chronic pain Plan: Today, patient is afebrile, 117/79, heart rate 97, 95% on 2 L nasal cannula. Ortho-note reviewed: Pain control, СВЕТЛАНА Villaseñor, PT/OT today with anticipated discharge in 24 hours Home medications reviewed and reconciled: Albuterol when necessary, gabapentin, nortriptyline, Topamax resumed Pain regimen: Gabapentin 600 mg 3 times a day, Flexeril 10 mg 3 times a day when necessary, Tylenol 650 mg every 6 hours when necessary, morphine 4 mg every 4 hours when necessary, nortriptyline 50 mg at bedtime, oxycodone 5 mg every 4 hours scheduled, oxycodone 10 mg every 6 hours when necessary, tizanidine 4 mg by mouth 3 times a day -Today I discontinued the Flexeril 3 times a day when necessary medication since the patient is already on tizanidine scheduled Patient is full code Objective - Vital Signs Vital signs: Vital Signs Temp 98.0 F 10/02/22 07:14 Pulse 87 10/02/22 08:00 Resp 14 10/02/22 08:00 BP 121/79 10/02/22 07:14 Pulse Ox 95 10/02/22 07:14 FiO2 Intake & Output 10/01/22 10/02/22 10/02/22 18:59 06:59 18:59 Intake Total 600 Output Total 1300 2300 Balance -700 -2300 Intake: IV 600 0.9% NaCl with KCl 20 Meq 600 /l 1,000 ml @ 50 mls/hr IV .Q20H [facility] Rx#: [id number] Output: Drainage 0 Right Neck 0 Urine 1300 2300 Uretheral (Villaseñor) 1300 Other: Voiding Method Indwelling Catheter Indwelling Catheter - Labs CBC & Chem 7: 10/01/22 05:35 10/01/22 05:35 Labs: Abnormal Lab Results - Last 24 Hours (Table) 10/01/22 Range/Units 05:35 Neutrophils # 13.56 H (1.80-7.70) X 10*3/uL Lymphocytes # 0.67 L (0.90-5.00) X 10*3/uL Monocytes # 1.69 H (0.20-1.00) X 10*3/uL Eosinophils # 0 L (0.04-0.35) X 10*3/uL
[2022-10-02] MEDS ORDERED: methocarbamoL 750 MG TAB PO PRN (12:59)
[2022-10-02] MEDS: LACTATED RINGERS 1,000 ML IV SCH (16:29)
[2022-10-02] MEDS: TOPIRAMATE 100 MG TAB PO SCH (21:07)
[2022-10-02] MEDS: MONTELUKAST 10 MG TAB PO SCH (21:08)
[2022-10-02] MEDS: HEPARIN SODIUM,PORCINE 5,000 UNIT/ML 1 ML VIAL SQ SCH (21:08)
[2022-10-02] MEDS: NORTRIPTYLINE 25 MG CAP PO SCH (21:52)
[2022-10-03] MEDS: MORPHINE SULFATE 4 MG/ML SYRINGE IVP PRN (01:32)
[2022-10-03] MEDS: ACETAMINOPHEN IV (For NPO) 1,000 MG in EMPTY BAG 1 BAG IVPB SCH (02:12)
[2022-10-03] MEDS: 0.9% NACL WITH KCL 20 MEQ/L 1,000 ML IV SCH (04:27)
[2022-10-03 08:15] VITALS: BP 136/86; PULSE 84; RESP 18; TEMP 97.3
[2022-10-03] MEDS: HEPARIN SODIUM,PORCINE 5,000 UNIT/ML 1 ML VIAL SQ SCH (08:28)
[2022-10-03] MEDS: atenoloL 25 MG TAB PO SCH (08:29)
[2022-10-03] MEDS: FUROSEMIDE 20 MG TAB PO SCH (08:29)
[2022-10-03] MEDS: GABAPENTIN 300 MG CAP PO SCH (08:29)
[2022-10-03] MEDS: SENNOSIDES-DOCUSATE SODIUM 1 EACH TAB PO SCH (08:29)
--- NOTE | 2022-10-03 09:21 | P.PN ---
Subjective Progress Note Date: 10/03/22 Principal diagnosis: 1. S/P C3-7 ACDF 2. Grade I spondylolisthesis of C7 on T1 3. C7-T1 stenosis 4. Neck pain 5. Right upper extremity radiculopathy Patient seen and examined this morning. Patient is currently resting in bed. Patient continues to report a moderate amount of pain in the posterior cervical region. Medications were adjusted yesterday and staffing reports that she has been falling asleep mid conversation. Frequency of pain management has been adjusted. Assisted patient upright in bed and setup her tray for breakfast. Surgical dressing is clean dry and intact. Patient states she has been ambulatory to restroom. We discussed discharge later today. Patient is to be up in chair for all meals. While sitting in chair place ice packs on shoulders. Continue to increase her daily activity, patient should be ambulatory 4 times a day. No acute events overnight. Objective - Vital Signs Vital signs: Vital Signs Temp 97.3 F L 10/03/22 07:13 Pulse 84 10/03/22 07:13 Resp 18 10/03/22 07:13 BP 136/86 10/03/22 07:13 Pulse Ox 93 L 10/03/22 07:13 FiO2 Intake & Output 10/02/22 10/03/22 10/03/22 18:59 06:59 18:59 Other: # Voids 4 - Exam Physical Examination General: The patient is awake and alert, in no acute distress Skin: Skin is warm and dry with no obvious rashes or lesions. Surgical incision to the posterior cervical spine, dressing is clean dry and intact. Eye: Pupils are equal, round and reactive to light, extra-ocular movements are intact; there is normal conjunctiva bilaterally. Neck: The neck is supple, there is no tenderness and ROM intact. Cardiovascular: There is a regular rate and rhythm. No murmur, rub or gallop is appreciated. Respiratory: Lungs are clear to auscultation, respirations are non-labored, breath sounds are equal. Gastrointestinal: Soft, non-distended, non-tender abdomen. Back: There is no tenderness to palpation in the midline, paralumbar, parathoracic or buttocks region. There is no obvious deformity . Musculoskeletal: ROM limited secondary to pain and stiffness from surgical procedure. Muscle strength in all major muscle groups of bilateral upper extremities 4/5, bilateral lower extremities 5/5. Neurological: CN 2-12 intact. There are no obvious motor or sensory deficits. Movement and coordination equal and intact. Sensory exam to light touch intact C 5-T1 and intact from L2-S1. Reflexes 2/4 in bilateral upper and lower extremities. Negative Hoffmans, babinski, and clonus signs. Psychiatric: Cooperative, appropriate mood & affect, normal judgment. - Labs CBC & Chem 7: 10/01/22 05:35 10/01/22 05:35 Assessment and Plan Assessment: Postop day 3: C2-T2 decompression and fusion 1. S/P C3-7 ACDF 2. Grade I spondylolisthesis of C7 on T1 3. C7-T1 stenosis 4. Neck pain 5. Right upper extremity radiculopathy Plan: -Appreciate senior management consultant and team management. -Activity: Ambulate QID, OOB all meals, up and about, limit lifting bending twisting to less than 5 lbs. Use walker or cane if needed for stability. -Daily PT/OT, increase ambulation strength and balance. -Hard cervical collar at all times -Pain control: Adequate at this time -Meds: reviewed -GI ppx: senna, Miralax -DVT PPX: heparin -Hygiene: Shower today. Maintain dressing clean and dry. -Drains: Maintain for now. Drain will be pulled this afternoon. -Encourage IS 10x/hr -Dispo: Anticipate discharge home later today *I reviewed and discussed this case with my attending Dr. Sauer, whom has reviewed this chart and films and is in agreement with assessment and plan of care as outlined above. I have personally seen and examined the patient, performed the documentation and the assessment and plan as written. Number of minutes spent on the visit: 20m.
--- NOTE | 2022-10-03 13:06 | P.DS ---
Providers Date of admission: 09/30/22 08:46 Expected date of discharge: 10/03/22 Attending physician: Joseph Sauer DO Consults: 09/30/22 14:37 Consult Physician Routine Consulting Provider: Tevin Avina Consult Reason/Comments: Medical Management Do you want consulting provider notified?: Yes Primary care physician: Bennie Bennett Hospital Course: Hospital Course: The patient was evaluated preoperatively and found to have the diagnosis of cervical spondylosis. They underwent appropriate preoperative care and were willing to undergo the intended procedure. They underwent a successful C2-T2 decompression and fusion, were recovered appropriately and sent to the floor. While on the floor they worked with physical therapy, occupational therapy and nursing to enhance their recovery experience. Their pain was well controlled through their stay and they were started on appropriate medications, DVT ppx modalities, activity and dietary needs. Daily labs were monitored closely, and transfusions were only used when necessary. Medicine as well as other consulting services have made their input and have helped with our team approach and multidisciplinary care. PT milestones have been met and passed and they have made the recommendation of home for this patient and treating providers agree with this care path. The patient will be discharged home with appropriate medications, instructions and follow-up information and in stable condition. Patient Condition at Discharge: Good Plan - Discharge Summary Discharge Rx Participant: Yes New Discharge Prescriptions: New Gabapentin 600 mg PO TID #90 tab oxyCODONE HCL [oxyCODONE HCL (IR)] 10 mg PO Q6H #42 tab methocarbamoL [Robaxin-750] 750 mg PO TID PRN #42 tab PRN Reason: Muscle Spasm Sennosides/Docusate Sodium [Senna Plus 8.6-50 mg Softgel] 1 each PO DAILY PRN #20 capsule PRN Reason: Constipation cefaDROXiL [Duricef] 500 mg PO Q12HR #10 cap No Action Nortriptyline [Pamelor] 50 mg PO HS tiZANidine [Zanaflex] 4 mg PO TID Butalb/APAP/Caff 50-325-40Mg [Fioricet 50-325-40] 1 tab PO DAILY PRN PRN Reason: Headache Furosemide [Lasix] 20 mg PO QAM Calcium Carbonate [Tums] 500 mg PO DIRECTED PRN PRN Reason: Heartburn Albuterol Sulfate [Proair Hfa] 2 puff INHALATION DAILY PRN PRN Reason: Shortness Of Breath Gabapentin 600 mg PO TID HYDROcodone/APAP 10-325MG [Olin 10-325] 1 tab PO HS Topiramate [Topamax] 200 mg PO HS atenoloL 25 mg PO QAM Potassium Chloride 10 meq PO BID Cetirizine HCl 10 mg PO QAM Montelukast [Singulair] 10 mg PO HS Discharge Medication List Albuterol Sulfate [Proair Hfa] 2 puff INHALATION DAILY PRN 04/30/18 [History] Butalb/APAP/Caff 50-325-40Mg [Fioricet 50-325-40] 1 tab PO DAILY PRN 04/30/18 [History] Calcium Carbonate [Tums] 500 mg PO DIRECTED PRN 04/30/18 [History] Furosemide [Lasix] 20 mg PO QAM 04/30/18 [History] Gabapentin 600 mg PO TID 04/30/18 [History] HYDROcodone/APAP 10-325MG [Olin 10-325] 1 tab PO HS 04/30/18 [History] Nortriptyline [Pamelor] 50 mg PO HS 04/30/18 [History] Topiramate [Topamax] 200 mg PO HS 04/30/18 [History] tiZANidine [Zanaflex] 4 mg PO TID 04/30/18 [History] Cetirizine HCl 10 mg PO QAM 09/22/22 [History] Montelukast [Singulair] 10 mg PO HS 09/22/22 [History] Potassium Chloride 10 meq PO BID 09/22/22 [History] atenoloL 25 mg PO QAM 09/22/22 [History] Gabapentin 600 mg PO TID #90 tab 10/03/22 [Rx] Sennosides/Docusate Sodium [Senna Plus 8.6-50 mg Softgel] 1 each PO DAILY PRN #20 capsule 10/03/22 [Rx] cefaDROXiL [Duricef] 500 mg PO Q12HR #10 cap 10/03/22 [Rx] methocarbamoL [Robaxin-750] 750 mg PO TID PRN #42 tab 10/03/22 [Rx] oxyCODONE HCL [oxyCODONE HCL (IR)] 10 mg PO Q6H #42 tab 10/03/22 [Rx] Follow up Appointment(s)/Referral(s): Joseph Sauer DO [Doctor of Osteopathic Medicine] - 10/15/22 10:15 am [facility] Visiting Nurse, [NON-STAFF] - As Needed Activity/Diet/Wound Care/Special Instructions: Spine Discharge and Recovery Instructions Date of Surgery: 09/30/2022 Diagnosis: Cervical spondylosis Procedure: C2-T2 decompression and fusion Medications: See medication list All medication refills should be obtained through your primary care doctor or your clinic spine surgeon. Please discuss prescription refills at your follow up appointment. Do not call the hospital for medication refills. Dressing: Leave your dressing in place for a total of 5 days post operatively. Then you may remove your dressing and leave open to air. Keep the area clean and if not able to keep area clean, then cover with sterile gauze and tape. Showering: You may shower 3 days after your procedure allowing soap and water to run over incision. Do not scrub. Do not soak. Blot dry. Follow up: Please confirm a follow up appointment with your surgeon 3 weeks post operatively. Please make an appointment to follow up with your PCP in 1-2 weeks after surgery for evaluation 3 phase, 3-week plan POST OP WEEKS 1-3 1. Lifting/carrying/pushing/pulling limited to less than 5 pounds. 2. Do not sit for longer than 15 minutes at one time. Get up and walk around. Prolonged sitting is NOT advised. If you lay down, see if you can tolerate laying down on you front (belly side) 3. Walk for periods of 15 minutes = 1 mile but no longer; do it multiple times times each day. 4. Ice your low back after activity. POST OP WEEKS 3-6 1. Lifting limited to less than 20 pounds. 2. Do not sit for longer than 30 minutes at a time. Frequently change positions. Use a sit-to stand workstation or take frequent breaks from sitting if you have returned to work. 3. Walk for 30 minutes each day. If possible, do these three or more times a day POST OP WEEKS 6+ At your 6-week appointment we will give you a physical therapy referral to focus on a core stabilization and strengthening program. You should also work on leg & buttock strengthening, hamstring & quadriceps stretching, and continue a low impact aerobic activity program such as swimming, walking, or riding a stationary bicycle. During the initial 6 weeks after your surgery, you are at the highest risk of re-injuring your spine. You should generally avoid BLTs (bending, lifting and twisting combination motions) and follow the above guidelines to reduce the chance of reinjury. You can anticipate post op appointments in our office at approximately 3 weeks and 6 weeks after your surgery. INCISION CARE: If your incision is not draining you do NOT need to cover it with a dressing. Keep your incision clean, dry and intact. In most cases, we apply skin glue, isai or sutures to the incision at the time of surgery. This will be like a crust or have the appearance of a scab and will fall off in time on its own. The stitches or isai need to be removed at 3 weeks post op appointment. You may begin to shower 3 days after surgery (this allows the glue to thomas well). However, please avoid scrubbing the incision site or peeling off any of the skin glue. This will ensure optimal healing of your incision. Also, during this time avoid soaking the incision area in water - this includes swimming pools, hot tubs or baths. No ointments, lotions or oils on the incision until your surgeon allows. Leave isai, sutures or glue in place. Neurological dysfunction that comes on suddenly can also be a sign of a stroke. Below some common symptoms of a stroke are listed: B - balance difficulty such as sudden onset walking or leaning to one side - NEW E - eye problem such as sudden double vision or trouble seeing on one side - NEW F - Facial weakness or numbness on one side - NEW A - Arm or leg weakness or numbness on one side - NEW S - Slurred speech or difficulty with word finding - NEW T - Time is BRAIN! Call 911 as soon as you recognize these symptoms Diet: Consume a regular diet rich in vegetables and lean protein such as chicken or fish. You should consume in a ratio of approximately 20% fats|40% carbohydrates|40%protein. Vegetables, sweet potatoes, brown rice or quinoa are examples of good carbohydrates. Chips, white bread, cookies and sweets/sugar are examples of bad carbohydrates. Limit your bad carbs, go wild with good carbs. "Life's Simple 7" Guidelines as per [place] [employer] These will help you reclaim your life after surgery and water and gas helper in your recovery, keeping in mind your restrictions. (1) Get Active. Physical activity can help people lose weight, control high blood pressure and cholesterol, feel emotionally better, and sleep better. (2) Control Cholesterol. Avoid a diet high in saturated fat, trans fat, & cholesterol. Limit whole milk & cream, ice cream, butter, egg yolks, processed meats (like sausage and hot dogs), and fatty meats. Choose healthy foods that are low in saturated fat, trans fat and cholesterol which include: Fruits and vegetables, fiber rich grain products (like whole grain pasta and brown rice), lean meat such as chicken, fish, nuts, seeds, and legumes. (3) Eat Better. Eat small portions. Shop at the grocery with a list and do not stray from it. Tips for a healthy diet include: Limit sodium intake to less than 1500mg daily, avoid prepackaged, processed, and fast foods, choose a diet rich in fruits, vegetables, and whole grain, high fiber foods, and limit saturated & cholesterol in your diet. (4) Manage Blood Pressure. If you have high blood pressure, you should have a cuff at home so that you can check your blood pressure regularly. Be sure you have a good cuff. An arm one is generally better than a wrist one. Bring the cuff to a doctor's appointment to validate that the measurements that your cuff are taking are accurate. Take your blood pressure twice daily when you are sitting down and relaxing. Record the numbers in a log and bring this log with you to your doctors' appointments. (5) Lose Weight if your BMI is above 25. A healthy BMI is between 19-25. To calculate Your BMI, you may use a Standard BMI Calculator on the NIH BMI website: <www.nhlbi.nih.gov/guidelines/obesity/BMI/bmicalc.htm>. Weigh oneself daily. If you are overweight, set a goal to lose weight. A pound a week loss if needed is a good target. (6) Reduce Blood Sugar. Limit foods and liquids with "added sugars." (Added sugars include sucrose, fructose, glucose, maltose, dextrose, high fructose corn syrup, corn syrup, concentrated fruit juice and honey). (7) Stop Smoking. If you smoke, quitting smoking is one of the best things that you can do for your health. Smoking increases your risk of heart attack, stroke, and peripheral vascular disease, which is a build-up of plaque in your arteries. Please discard all the cigarettes and lighters in your house. Have a plan for what you will do when you have the urge to smoke. Direct and second- hand smoke shortens your life as well as the lives of your family, friends and others around you. For your health and the health of those around you, please consider quitting! Proper Bending Body Mechanics: Maintain a wide stance with one foot slightly in front of the other. Keep your back straight. Bend utilizing the strength in your hips and knees. Do not bend at the waist. Maintain the lifted object at your waist-level close to your body. Avoid lifting weight that causes immediately pain or pain anywhere in the body afterwards. Smoking/Nicotine If there was ever one thing that you could do to increase your overall health, decrease your risk of cardiovascular problems by about 39% the second you make the choice, it is to STOP SMOKING. Your body's most instant gratification is the second you stop smoking. We have all heard the studies, read the articles but it is true, smoking is extremely bad for your overall health, and moreover it is detrimental to your bone health. Nicotine, IN ANY FORM, kills bone cells, prevents your body from healing fractures, and significantly prolongs healing after surgery. In spine surgery specifically, it increases your risk of not healing your bones to create a fusion and increases your risk of having a revision surgery due to this up to 60%. I know it is hard. I know it feels impossible. But there are ways. Take control of your life. We are here to help you through it. And when you are ready, ask us and we can direct you to help if you desire. Use the START Plan to Quit Smoking (please visit the Helpguide.org website listed below for more information): S = Set a quit date. Choose a date within the next 2 weeks, so you have enough time to prepare without losing your motivation to quit. If you mainly smoke at work, quit on the weekend, so you have a few days to adjust to the change. T = Tell family, friends, and co-workers that you plan to quit. Let your friends and family in on your plan to quit smoking and tell them you need their support and encouragement to stop. Look for a quit yohan who wants to stop smoking as well. You can help each other get through the rough times. A = Anticipate and plan for the challenges you'll face while quitting. Most people who begin smoking again do so within the first 3 months. You can help yourself make it through by preparing ahead for common challenges, such as nicotine withdrawal and cigarette cravings. R = Remove cigarettes and other tobacco products from your home, car, and work. Throw away all your cigarettes (no emergency pack!), lighters, ashtrays, and matches. Wash your clothes and freshen up anything that smells like smoke. Shampoo your car, clean your drapes and carpet, and steam your furniture. T = Talk to your doctor about getting help to quit. Your doctor can prescribe medication to help with withdrawal and suggest other alternatives. If you can't see a doctor, you can get many products over the counter at your local pharmacy or grocery store, including the nicotine patch, nicotine lozenges, and nicotine gum. Resources for Quitting Smoking: <https://www.[place].gov/documents/[facility]/Quit_Tobacco_Resources_for_patients_313 480_7.pdf> Supplementation: Take recommended dosages of Vitamin D and Calcium to help fortify your bones and help them to heal. See your health maintenance packet for dosages and recommended levels. DVT/VTE prophylaxis: You will be given compression stockings from the hospital. Wear these daily for the first two weeks after surgery. You may take them off at night. You may be prescribed a medication to help thin your blood. Take this as directed. If you are not prescribed this medication, early and frequent ambulation has been shown to be the best prophylaxis to deep vein thrombosis and sequelae related to this event. Discharge Disposition: HOME SELF-CARE
--- NOTE | 2022-10-03 13:54 | P.PN ---
Subjective Progress Note Date: 10/03/22 Pt doing better mobility caldera today and has some improvement in mood Gen: in no apparent distress, resting comfortably in bed Eyes: PERRL, no scleral injection or icterus HENT: normocephalic, atraumatic, good hearing acuity, moist mucous membranes Neck: no tracheal deviation, full range of motion Resp: good air exchange, breathing comfortably with no accessory muscle use, no tactile fremitus CVS: good distal perfusion x 4, no pitting edema GI: soft, NTTP, ND, no hepatosplenomegaly : no suprapubic tenderness, no CVAT, villaseñor catheter not present MSK: no clubbing, no cyanosis, no noted contractures of extremities Skin: no noted rashes, petechiae; temperature of skin is appropriate Neuro: moving all extremities without signs of weakness, CN II-XII intact Psych: cooperative, euthymic mood, insight and judgment intact Hospital Course: 56-year-old woman with a medical history of hypertension, migraine, chronic pain presented for C3 to 7 ACDF. Medicine consulted for medical management. Pastora nt's only complaint is soreness in the neck, otherwise has no complaints at this time. Patient was still groggy following the procedure/anesthesia and was not able to provide significant history of participate well with review of systems. Upon initial evaluation, patient is afebrile, 98/59, heart rate 80, 96% on 3 L of nasal cannula. No labs or images to review. Assessment: Hypertension Migraine Chronic pain Plan: Ortho-note reviewed: Pain control, СВЕТЛАНА Villaseñor, PT/OT today with anticipated discharge today Home medications reviewed and reconciled: Albuterol when necessary, gabapentin, nortriptyline, Topamax resumed Pain regimen: Gabapentin 600 mg 3 times a day, Flexeril 10 mg 3 times a day when necessary, Tylenol 650 mg every 6 hours when necessary, morphine 4 mg every 4 hours when necessary, nortriptyline 50 mg at bedtime, oxycodone 5 mg every 4 hours scheduled, oxycodone 10 mg every 6 hours when necessary, tizanidine 4 mg by mouth 3 times a day -I discontinued the Flexeril 3 times a day when necessary medication since the patient is already on tizanidine scheduled Patient is full code Objective - Vital Signs Vital signs: Vital Signs Temp 97.3 F L 10/03/22 07:13 Pulse 84 10/03/22 09:49 Resp 18 10/03/22 09:49 BP 136/86 10/03/22 07:13 Pulse Ox 93 L 10/03/22 07:13 FiO2 Intake & Output 10/02/22 10/03/22 10/03/22 18:59 06:59 18:59 Other: # Voids 4 1 - Labs CBC & Chem 7: 10/01/22 05:35 10/01/22 05:35
== END 2022-10-03 14:51 | disposition home or self-care (01) | DRG 455 ==
LOC: 2ORMAIN 08:46 → 4SSUR 14:30
PROVIDERS: ADMIT Orthopaedic Surgery; ATTEND Orthopaedic Surgery
PROC: 0RG2071 Fusion of 2 or more Cervical Vertebral Joints with Autologous Tissue Substitute, Posterior Approach, Posterior Column, Open Approach (ICD-10-PCS; 2022-09-30)
PROC: 01N80ZZ Release Thoracic Nerve, Open Approach (ICD-10-PCS; 2022-09-30)
PROC: 01N10ZZ Release Cervical Nerve, Open Approach (ICD-10-PCS; 2022-09-30)
PROC: 0RG40AJ Fusion of Cervicothoracic Vertebral Joint with Interbody Fusion Device, Posterior Approach, Anterior Column, Open Approach (ICD-10-PCS; 2022-09-30)
PROC: 0RG4071 Fusion of Cervicothoracic Vertebral Joint with Autologous Tissue Substitute, Posterior Approach, Posterior Column, Open Approach (ICD-10-PCS; 2022-09-30)
PROC: 0RG20AJ Fusion of 2 or more Cervical Vertebral Joints with Interbody Fusion Device, Posterior Approach, Anterior Column, Open Approach (ICD-10-PCS; principal; 2022-09-30 11:30)
DX: M43.13 Spondylolisthesis, cervicothoracic region (principal); I10 Essential (primary) hypertension; J45.909 Unspecified asthma, uncomplicated; M48.03 Spinal stenosis, cervicothoracic region; M40.204 Unspecified kyphosis, thoracic region; G47.9 Sleep disorder, unspecified; K21.9 Gastro-esophageal reflux disease without esophagitis; G89.29 Other chronic pain; G43.909 Migraine, unspecified, not intractable, without status migrainosus; M47.23 Other spondylosis with radiculopathy, cervicothoracic region; Z98.1 Arthrodesis status; Z28.310 Unvaccinated for COVID-19; Z79.891 Long term (current) use of opiate analgesic; Z79.899 Other long term (current) drug therapy; Z91.048 Other nonmedicinal substance allergy status
CPT/HCPCS: 72040; 72125; 80048; 85025; 86850; 86900; 86901; 87070